=== PATIENT | male | born 1940 | race Caucasian/White ===

== ENCOUNTER → 2016-04-09 | Outpatient (CLI) | payer OTHER, MEDICARE ==
[~2016-04-09] MED LIST: CLOP1TAB15 PO; GLC5 PO; HYDR25TA4 PO; LISI40TA PO; METF-384 PO; MULT-190 PO; SIMV80TA2 PO; VERA360C2 PO
[2016-04-09 18:01] LABS: BLOOD UREA NITROGEN 25 mg/dl (7-18); BUN/CREATININE RATIO 17.6 (10-20); CALCIUM 9.5 mg/dl (8.5-10.1); CARBON DIOXIDE 31 mmol/L (21-32); CHLORIDE 103 mmol/L (98-107); GLUCOSE 105 mg/dl (70-99); POTASSIUM 3.6 mmol/L (3.5-5.1); SODIUM 142 mmol/L (136-145)
== END | disposition home or self-care (01) ==
LOC: C.LAB1850 16:28
PROVIDERS: ATTEND Internal Medicine
DX: E11.9 Type 2 diabetes mellitus without complications (principal)

== ENCOUNTER → 2016-04-13 | Outpatient (CLI) | payer OTHER, MEDICARE ==
--- NOTE | 2016-04-13 09:44 | DIAGNOSTIC IMAGING REPORT ---
DUPLEX RENAL ARTERY ULTRASOUND HISTORY: E11.9 Diabetes [id number] COMPARISON STUDY: None. FINDINGS: The proximal right renal artery was not well visualized. Otherwise, the bilateral renal arteries show no elevated velocities to suggest hemodynamically significant stenosis. The peak systolic velocity within the proximal left renal artery was 87 cm/s and within the distal right renal artery was 88 cm/s. Bilateral renal veins are patent. Resistive indices within the bilateral renal arcuate arteries were less than 0.8. IMPRESSION: No evidence for renal artery stenosis. Electronically signed by: Mao Washington M.D. 04/13/2016 9:42 AM Dictated Date/Time: 04/13/2016 9:39 AM
--- NOTE | 2016-04-13 09:46 | DIAGNOSTIC IMAGING REPORT ---
EXAMINATION: RENAL ULTRASOUND CLINICAL HISTORY: Diabetes. COMPARISON STUDY: None FINDINGS: The right kidney measures 11.7 cm. The left kidney measures 11.6 cm. There is no evidence of hydronephrosis. There is a 22 mm right renal cyst which is minimally complex as it contains a 7 mm echogenic focus. No bladder abnormalities are visualized. Bilateral ureteral jets were visualized. The prostate is enlarged measuring 41 mm. IMPRESSION : 1. 22 mm minimally complex right renal cyst 2. Mild prostate enlargement 3. No evidence of hydronephrosis 4. Symmetric renal size and cortical thickness Electronically signed by: Junior Romero M.D. 04/13/2016 9:44 AM Dictated Date/Time: 04/13/2016 9:43 AM
== END | disposition home or self-care (01) ==
LOC: C.ULTR 08:20
PROVIDERS: ATTEND Internal Medicine
DX: E11.9 Type 2 diabetes mellitus without complications (principal); N28.1 Cyst of kidney, acquired

== ENCOUNTER → 2016-07-01 | Day surgery (SDC) | payer OTHER, MEDICARE ==
[2016-06-19 09:20] VITALS: BMI 25.0
[~2016-07-01] VITALS: Ht 175.3 cm; Wt 76.8 kg
[~2016-07-01] MED LIST changes: +LIDOCAINE HCL 2% 2 ML VIAL (20MG/ML) ONE; +PROPOFOL IV EMULSION 10 MG/ML 20 ML VIAL IV ONE
[2016-07-01 08:58] VITALS: Ht 175.3 cm; Wt 76.8 kg
--- NOTE | 2016-07-01 09:21 | Endo History and Physical ---
History & Physical Date of Service: Jul 01, 2016. Chief Complaint: SCREENING Referring Physician: GILES ABEBE History of Present Illness 75 yo CM who presents for screening colonoscopy. Past Surgical History Hx Cardiac Surgery: No Hx Internal Defibrillator: No Hx Pacemaker: No Hx Abdominal Surgery: Yes (HERNIA REPAIR) Hx of Implantable Prosthesis: No Hx Post-Op Nausea and Vomiting: No Hx Cancer Surgery: No Hx Thoracic Surgery: No Hx Orthopedic: No Hx Urinary Tract Surgery: No Family History Polyp Social History Smoking Status: Former Smoker Hx Substance Use: No Hx Alcohol Use: No Allergies Coded Allergies: No Known Allergies (Verified , NONE, 06/19/16) Current Medications Reported Home Medications Medications Dose Route/Sig Max Daily Dose Days Date Category Ocuvite Preservision (Multivitamins/Minerals) 1 Tab Tab 1 Tab PO BID 09/11/15 Reported Glucophage (Metformin Hcl) 1,000 Mg Tab 1,000 Mg PO BID 09/11/15 Reported Hctz (Hydrochlorothiazide) 25 Mg Tab 25 Mg PO QAM 09/11/15 Reported Prinivil (Lisinopril) 40 Mg Tab 40 Mg PO QAM 09/11/15 Reported Verapamil Hcl Sr (Verapamil Hcl) 360 Mg Cap 360 Mg PO QAM 09/11/15 Reported Plavix (Clopidogrel Bisulfate) 75 Mg Tab 75 Mg PO QAM 12/16/08 Reported Zocor (Simvastatin) 80 Mg Tab 80 Mg PO QPM 12/12/08 Reported Glucotrol * (Glipizide) 5 Mg Tab 10 Mg PO BID 12/12/08 Reported Vital Signs Weight (Kilograms): 76.82 Height (Feet): 5 Height (Inches): 9 Date Time Temp Pulse Resp B/P Pulse Ox O2 Delivery O2 Flow Rate FiO2 07/01/16 09:12 36.8 85 20 150/80 96 Room Air Physical Exam General Appearance: WD/WN, no apparent distress Respiratory/Chest: Auscultation: breath sounds normal Cardiovascular: Heart Auscultation: RRR Abdomen: Bowel Sounds: normal Inspection & Palpation: soft, non-distended, no tenderness, guarding & rebound Assessment and Plan Assessment: 75 yo CM who presents for screening colonoscopy. Plan: Proceed with colonoscopy.
--- NOTE | 2016-07-01 10:00 | Discharge Instructions ---
Endoscopy Patient Instructions Date / Procedure(s) Performed Jul 01, 2016. Colonoscopy Allergy Information Coded Allergies: No Known Allergies (Verified , NONE, 06/19/16) Discharge Date / Findings Jul 01, 2016. Diverticulosis Internal hemorrhoids Ascending colon polyps x2 Medication Instructions Stopped Medication(s): PLAVIX AND METFORMIN OK to resume all medications today as prescribed Reported Home Medications Medications Dose Route/Sig Max Daily Dose Days Date Category Ocuvite Preservision (Multivitamins/Minerals) 1 Tab Tab 1 Tab PO BID 09/11/15 Reported Glucophage (Metformin Hcl) 1,000 Mg Tab 1,000 Mg PO BID 09/11/15 Reported Hctz (Hydrochlorothiazide) 25 Mg Tab 25 Mg PO QAM 09/11/15 Reported Prinivil (Lisinopril) 40 Mg Tab 40 Mg PO QAM 09/11/15 Reported Verapamil Hcl Sr (Verapamil Hcl) 360 Mg Cap 360 Mg PO QAM 09/11/15 Reported Plavix (Clopidogrel Bisulfate) 75 Mg Tab 75 Mg PO QAM 12/16/08 Reported Zocor (Simvastatin) 80 Mg Tab 80 Mg PO QPM 12/12/08 Reported Glucotrol * (Glipizide) 5 Mg Tab 10 Mg PO BID 12/12/08 Reported Provider Instructions Activity Restrictions - No exercising or heavy lifting for 24 hours. - Do not drink alcohol the day of the procedure. - Do not drive a car or operate machinery until the day after the procedure. - Do not make any important decisions or sign important papers in 24 hours after the procedure. Following Day: - Return to full activity which may include returning to work/school. Diet Start your diet with liquids and light foods (jello, soup, juice, toast). Then eat your usual diet if not nauseated. Treatment For Common After Affects For mild abdominal pain, bloating, or excessive gas: - Rest - Eat lightly - Lie on right side Follow-Up Information Follow-up with GILES ABEBE as scheduled Anesthesia Information What You Should Know You have had a procedure that required some medicine to reduce anxiety and discomfort. This treatment is called moderate sedation. After receiving the treatment, you may be sleepy, but you will be able to breathe on your own. The effects of the treatment may last for several hours. Follow these instructions along with Activity/Diet recommendations noted above: * Do NOT do anything where dizziness or clumsiness would be dangerous. * Rest quietly at home today, then you can be up and about tomorrow. * Have a responsible person stay with you the rest of today. * You may have had an I.V. today. If so, you may take the dressing off later today. Recommendations Call your doctor if: * Trouble breathing * Continuous vomiting for more than 24 hours * Temperature above 101 degrees * Severe abdominal pain or bloating * Pain not relieved by pain medicine ordered * There is increased drainage or redness from any incision * A large amount of rectal bleeding greater than 2-3 tablespoons. (If you had a polyp/s removed or have hemorrhoids, a small amount of blood - from the rectum is to be expected.) * You have any unanswered questions or concerns. IN THE EVENT OF A SERIOUS EMERGENCY, GO TO THE NEAREST EMERGENCY ROOM Your discharge instructions were prepared by provider Maged Lauren. Patient Instructions Signature Page Marcos Zhu Patient (or Guardian) Signature/Date: I have read and understand the instructions given to me by my caregivers. Caregiver/RN/Doctor Signature/Date: The above-named patient and/or guardian has received patient instructions on this date. + Original Patient Signature Page (only) stays with chart. Please make copy for patient.
--- NOTE | 2016-07-01 10:09 | GI REPORT ---
Procedure Date: 07/01/2016 9:26 AM Procedure: Colonoscopy Indications: Screening for colorectal malignant neoplasm Medicines: Monitored Anesthesia Care Complications: No immediate complications. Estimated Blood Loss: Estimated blood loss: none. Procedure: Pre-Anesthesia Assessment: - Prior to the procedure, a History and Physical was performed, and patient medications and allergies were reviewed. The patient's tolerance of previous anesthesia was also reviewed. The risks and benefits of the procedure and the sedation options and risks were discussed with the patient. All questions were answered, and informed consent was obtained. Prior Anticoagulants: The patient has taken Plavix (clopidogrel), last dose was 7 days prior to procedure. ASA Grade Assessment: II - A patient with mild systemic disease. After reviewing the risks and benefits, the patient was deemed in satisfactory condition to undergo the procedure. After I obtained informed consent, the scope was passed under direct vision. Throughout the procedure, the patient's blood pressure, pulse, and oxygen saturations were monitored continuously. The scope was introduced through the anus and advanced to the terminal ileum. The colonoscopy was performed without difficulty. The patient tolerated the procedure well. The quality of the bowel preparation was good. The terminal ileum, ileocecal valve, appendiceal orifice, and rectum were photographed. Findings: Two sessile polyps were found in the ascending colon. The polyps were 3 to 4 mm in size. These polyps were removed with a cold biopsy forceps. Resection and retrieval were complete. Multiple small-mouthed diverticula were found in the sigmoid colon. Non-bleeding internal hemorrhoids were found during retroflexion. The hemorrhoids were small. Impression: - Two 3 to 4 mm polyps in the ascending colon, removed with a cold biopsy forceps. Resected and retrieved. - Diverticulosis in the sigmoid colon. - Non-bleeding internal hemorrhoids. Recommendation: - Resume previous diet. - Continue present medications. - Return to primary care physician as previously scheduled. - No repeat colonoscopy due to age. Maged Lauren, DO 07/01/2016 10:08:58 AM This report has been signed electronically. Note Initiated On: 07/01/2016 9:26 AM I attest to the content of the Intraoperative Record and orders documented therein, exceptions below
[2016-07-01 10:29] VITALS: BP 123/66; PULSE 72; O2SAT 95
--- NOTE | 2016-07-01 14:27 | Anesthesiology Progress Note ---
Anesthesia Post Op Note Date & Time Jul 01, 2016 at 14:26 Vital Signs Pain Intensity: 0 Vital Signs Past 12 Hours Date Time Temp Pulse Resp B/P Pulse Ox O2 Delivery O2 Flow Rate FiO2 07/01/16 10:29 72 20 123/66 95 Room Air 07/01/16 10:14 65 20 111/59 95 Room Air 07/01/16 09:59 65 20 108/53 98 Room Air 07/01/16 09:12 36.8 85 20 150/80 96 Room Air Notes Mental Status: alert / awake / arousable, participated in evaluation Pt Amnestic to Procedure: Yes Nausea / Vomiting: adequately controlled Pain: adequately controlled Airway Patency, RR, SpO2: stable & adequate BP & HR: stable & adequate Hydration State: stable & adequate Anesthetic Complications: no major complications apparent
== END | disposition home or self-care (01) ==
LOC: C.GI 08:39
PROVIDERS: ATTEND Internal Medicine
DX: Z12.11 Encounter for screening for malignant neoplasm of colon (principal); D12.2 Benign neoplasm of ascending colon; K57.30 Diverticulosis of large intestine without perforation or abscess without bleeding; K64.8 Other hemorrhoids; Z87.891 Personal history of nicotine dependence

== ENCOUNTER → 2016-08-20 | Outpatient (CLI) | payer OTHER, MEDICARE ==
[~2016-08-20] MED LIST changes: -LIDOCAINE HCL 2% 2 ML VIAL (20MG/ML) ONE; -PROPOFOL IV EMULSION 10 MG/ML 20 ML VIAL IV ONE
[2016-08-20 10:58] LABS: BASO % 0.5 %; BASO ABS # 0.03 K/uL (0-0.2); COMPLETE YES; HEMATOCRIT 41.8 % (42-52); IG% 0.3 %; LYMPH % 24.5 %; MEAN CELL VOLUME 95.4 fL (80-100); MEAN CORPUSCULAR HEMOGLOBIN 30.6 pg (25-34); MEAN CORPUSCULAR HGB CONC 32.1 g/dl (32-36); MONO % 9.5 %; NEUT % 57.2 %; PLATELET COUNT 191 K/uL (130-400); RED BLOOD COUNT 4.38 M/uL (4.7-6.1); WHITE BLOOD COUNT 6.12 K/uL (4.8-10.8)
[2016-08-20 11:28] LABS: ESTIMATED AVERAGE GLUCOSE 197 mg/dl; HA1C FLAG Normal (Normal)
[2016-08-20 15:39] LABS: ALT/SGPT 42 U/L (12-78); AST/SGOT 26 U/L (15-37); BLOOD UREA NITROGEN 20 mg/dl (7-18); BUN/CREATININE RATIO 16.5 (10-20); CALCIUM 9.6 mg/dl (8.5-10.1); CARBON DIOXIDE 33 mmol/L (21-32); CHLORIDE 103 mmol/L (98-107); GLUCOSE 149 mg/dl (70-99); POTASSIUM 4.1 mmol/L (3.5-5.1); SODIUM 141 mmol/L (136-145)
[2016-08-20 15:50] LABS: CHOLESTEROL 128 mg/dl (0-200); CHOLESTEROL/HDL RATIO 2.8; HDL CHOLESTEROL 45 mg/dl; LDL CHOLESTEROL CALCULATED 51 mg/dl; TRIGLYCERIDES 162 mg/dl (0-150); VERY LOW DENSITY LIPOPROT CALC 32 mg/dl
== END | disposition home or self-care (01) ==
LOC: C.LABBC 09:11
PROVIDERS: ATTEND Physician Assistant
DX: E11.9 Type 2 diabetes mellitus without complications (principal); I10 Essential (primary) hypertension; E78.00 Pure hypercholesterolemia, unspecified

== ENCOUNTER → 2016-10-01 | Outpatient (CLI) | payer OTHER, MEDICARE | END | disposition home or self-care (01) | LOC: C.LABBC 10:06 | PROVIDERS: ATTEND Internal Medicine | DX: E11.9 Type 2 diabetes mellitus without complications (principal) ==

== ENCOUNTER → 2016-12-07 | Outpatient (CLI) | payer OTHER, MEDICARE ==
[2016-12-08 05:48] LABS: ESTIMATED AVERAGE GLUCOSE 171 mg/dl; HA1C FLAG Normal (Normal)
== END | disposition home or self-care (01) ==
LOC: C.LABBC 09:17
PROVIDERS: ATTEND Internal Medicine
DX: E11.9 Type 2 diabetes mellitus without complications (principal)

== ENCOUNTER → 2017-03-04 | Outpatient (CLI) | payer OTHER, MEDICARE ==
[2017-03-04 13:10] LABS: BASO % 0.6 %; BASO ABS # 0.04 K/uL (0-0.2); COMPLETE YES; EOS % 3.2 %; IG% 0.4 %; LYMPH % 31.8 %; LYMPH ABS # 2.25 K/uL (1.2-3.4); MEAN CELL VOLUME 96.9 fL (80-100); MEAN CORPUSCULAR HEMOGLOBIN 31.7 pg (25-34); MEAN CORPUSCULAR HGB CONC 32.7 g/dl (32-36); MEAN PLATELET VOLUME 12.9 fL (7.4-10.4); MONO % 9.7 %; NEUT % 54.3 %; PLATELET COUNT 210 K/uL (130-400); RED BLOOD COUNT 4.54 M/uL (4.7-6.1); WHITE BLOOD COUNT 7.08 K/uL (4.8-10.8)
[2017-03-04 13:13] LABS: URINE APPEARANCE CLEAR (CLEAR); URINE BILIRUBIN NEG (NEG); URINE COLOR YELLOW; URINE NITRITE NEG (NEG); URINE PH 5.5 (4.5-7.5); URINE SPECIFIC GRAVITY 1.021 (1.000-1.030); UROBILINOGEN NEG (NEG)
[2017-03-04 13:19] LABS: ESTIMATED AVERAGE GLUCOSE 174 mg/dl; HA1C FLAG Normal (Normal)
[2017-03-04 13:22] LABS: MANUAL MICROSCOPIC REQUIRED? NO; REVIEW REQ? NO
[2017-03-04 13:43] LABS: ALT/SGPT 36 U/L (12-78); AST/SGOT 23 U/L (15-37); BLOOD UREA NITROGEN 22 mg/dl (7-18); BUN/CREATININE RATIO 16.2 (10-20); CALCIUM 9.4 mg/dl (8.5-10.1); CARBON DIOXIDE 29 mmol/L (21-32); CHLORIDE 100 mmol/L (98-107); CHOLESTEROL 139 mg/dl (0-200); CREATININE 1.33 mg/dl (0.60-1.40); GLUCOSE 152 mg/dl (70-99); POTASSIUM 3.6 mmol/L (3.5-5.1); SODIUM 136 mmol/L (136-145); TRIGLYCERIDES 160 mg/dl (0-150); VERY LOW DENSITY LIPOPROT CALC 32 mg/dl
[2017-03-04 13:45] LABS: RATIO 138.6 mcg/mg (0-30.0)
[2017-03-04 13:47] LABS: CHOLESTEROL/HDL RATIO 2.5; HDL CHOLESTEROL 56 mg/dl; LDL CHOLESTEROL CALCULATED 51 mg/dl
== END | disposition home or self-care (01) ==
LOC: C.LABPVFM 09:36
PROVIDERS: ATTEND Internal Medicine
DX: E11.9 Type 2 diabetes mellitus without complications (principal)

== ENCOUNTER → 2017-06-29 | Outpatient (CLI) | payer OTHER, MEDICARE | END | disposition home or self-care (01) | LOC: C.LABPVFM 08:59 | PROVIDERS: ATTEND Internal Medicine | DX: I10 Essential (primary) hypertension (principal) ==

== ENCOUNTER 2020-09-13 19:44 | Inpatient (IN) ==
[2020-09-13] MEDS ORDERED: CEFEPIME 2,000 MG/20 ML VIAL IV STA (19:58)
[2020-09-13] MEDS ORDERED: ACETAMINOPHEN 500 MG TAB PO STA (19:58)
[2020-09-13] MEDS ORDERED: SODIUM CHLORIDE 0.9% 1000ML 1,000 ML IV SCH (20:00)
--- NOTE | 2020-09-13 20:01 | Emergency Department Note ---
Impression & Plan Weakness, Acute confusion, Fever, Pneumonia ED Provider Note NAME: CRISTOPHER AVITIA AGE: 79 SEX: M : 1940 ARRIVES VIA: Ambulance INFORMANT: [Patient][ems, nursing] ED PROVIDER(S): [Luis A Titus MD] CHIEF COMPLAINT: Illness HISTORY OF PRESENT ILLNESS: The patient is a 79-year-old male who presents with about 5 days of symptoms. The patient has had some chills. He has felt weaker. Today, he seemed somewhat confused and disoriented and had some difficulty with balance. He presents by EMS. Blood sugar was 220 as per EMS. The patient has been vaccinated for COVID-19. He has had no sick exposures. He denies any sore throat, cough, chest pain or abdominal pain. No diarrhea or urinary complaints. As per nursing staff, the patient presents febrile. REVIEW OF SYSTEMS: See HPI for pertinent positives and negatives. A total of ten systems were reviewed and were otherwise negative. PMHx/PSHx: See Below SOCIAL HISTORY: See Below. PHYSICAL EXAM: GENERAL: Patient is in no acute distress. HEENT: No acute trauma, normocephalic atraumatic, mucous membranes moist, no nasal congestion, no scleral icterus. NECK: No stridor, no adenopathy, no meningismus, trachea is midline. LUNGS: Clear to auscultation bilaterally, no wheeze, no rhonchi, breath sounds equal. HEART: 3/6 systolic murmur, mildly tachycardic, regular rhythm. ABDOMEN: Soft, nontender, bowel sounds positive, no hernias, no peritonitis. EXTREMITIES: No cyanosis or edema, full range of motion of all the joints without pain or difficulty, no signs for acute trauma. NEUROLOGIC: Awake and alert, no speech slur, no acute motor or sensory deficits, no focal weakness. SKIN: No rash, no jaundice, no diaphoresis. DIFFERENTIAL DIAGNOSIS: Sepsis, UTI, pneumonia, metabolic abnormality, electrolyte abnormalities, cardiac sources, COVID-19, cellulitis, UTI, bacteremia, intracerebral event, toxicologic etiology, neurologic event, as well as other pathologies. EMERGENCY DEPARTMENT COURSE/PROCEDURES: ECG: Indication was weakness. The ECG shows a sinus tachycardia with PACs. There is a right bundle branch block. The rate is 103. There is no ST elevation, no PVCs. The QTc is 453. Continuous Cardiac Monitoring: An order was placed for continuous cardiac monitoring. The monitor shows a rate of 119 with sinus tachycardia. Critical Care Note: I have personally spent 52 minutes of critical care time in the direct management of this patient. This includes bedside care, interpretation of diagnostic studies, and testing, discussion with consultants, patient, and family members, and other required patient management activities. This 52 minutes is in excess of all separately billable procedures. MEDICAL DECISION MAKING: There is no leukocytosis. The patient does have an anemia but this appears baseline looking back at previous testing. There is a normal platelet count. No coagulopathy. Sodium was somewhat low at 129. Creatinine was elevated at 1.48. Glucose was somewhat elevated. Lactic acid level was elevated consistent with infection/sepsis. No worrisome liver enzyme elevation. Urinalysis showed some contamination, no obvious infection. Lyme disease testing was potentially positive with an equivocal IgM. Covid testing returned negative. Chest film shows what appears to be pneumonia. On exam, the patient was resting comfortably. He was in no significant distress. He was tachycardic though and febrile. Patient was given IV saline, 1 L. He received IV cefepime and oral Tylenol. The patient is in need of a hospital stay. He presents weak, confused, febrile and tachycardic. He appears to have pneumonia as the cause for his issues. I did speak with the patient and case management. I spoke with his . The on-call hospitalist was consulted. Past Med/Surg History Medical History Actinic keratoses Diabetes mellitus Diverticulosis of colon Hypercholesterolemia Hypertension Internal hemorrhoids Limb pain Macular degeneration Seborrheic keratosis Social History Smoking Status: Former smoker Tobacco Type: Cigarettes Smoking End Date: 1964; Second Hand Exposure: No; Do You Dip or Chew Tobacco: No; Hx Alcohol Use: No Hx Substance Use: No Preferred Language: Citizen Of [place] Communication Ability: Effective Check Services Clerk Required: No Beliefs That Will Affect Care: None Current Living Situation: Spouse Feels Safe at Home: Yes Safety Concerns: Feels Safe At This Time Assistive Devices: None Allergies Allergies Allergy/AdvReac Type Severity Reaction Status Date / Time No Known Allergies Allergy NONE Verified 09/13/20 20:12 Home Meds Home Medications Medication Instructions Recorded Confirmed vitamins A,C,[id number] 14,320 1 cap PO BID 11/10/18 09/13/20 unit-226 mg-200 unit capsule simvastatin 80 mg PO HS 09/13/20 09/13/20 Previous Rx's Medication Instructions Recorded pioglitazone 30 mg tablet 30 mg PO DAILY #90 tab 01/03/20 lisinopril 40 mg tablet 40 mg PO DAILY #90 tab 05/13/20 metformin 1,000 mg tablet 1,000 mg PO BID #180 tab 05/13/20 verapamil 360 mg 24 hr 360 mg PO DAILY #90 cap 05/13/20 capsule,extended release glipizide 5 mg tablet, extended 10 mg PO BID #360 tab 05/14/20 release 24 hr clopidogrel 75 mg tablet 75 mg PO DAILY #90 tab 05/15/20 hydrochlorothiazide 25 mg tablet 25 mg PO DAILY #90 tab 05/15/20 Results & Data (ED) Vital Signs Vital Signs - 24 hr 09/13/20 19:49 09/13/20 19:53 09/13/20 19:57 Temperature 38.8 C H Temperature Source Oral Pulse Rate 120 H 105 H 103 H Pulse Rate from SpO2 Sensor 99 H 103 H Pulse Rhythm Regular Pulse Strength Normal Respiratory Rate 28 H 18 21 Respiratory Effort / Characteristics Non-Labored Respiratory Depth Normal Respiratory Pattern Regular Blood Pressure 143/76 H 143/76 H Blood Pressure Mean 98 98 Blood Pressure Position Lying Pulse Oximetry 91 93 91 Oxygen Delivery Method Room Air Sepsis Recent Fever Within 48 Hours Yes Sepsis New/Unexplained Change in Mental Status Yes Sepsis Action Taken by Nursing Physician Notified 09/13/20 20:00 09/13/20 20:01 09/13/20 20:15 Temperature Temperature Source Pulse Rate 103 H 105 H 103 H Pulse Rate from SpO2 Sensor 103 H 104 H 107 H Pulse Rhythm Pulse Strength Respiratory Rate 20 19 26 H Respiratory Effort / Characteristics Respiratory Depth Respiratory Pattern Blood Pressure 159/67 H 144/63 H Blood Pressure Mean 97 90 Blood Pressure Position Pulse Oximetry 90 91 89 L Oxygen Delivery Method Sepsis Recent Fever Within 48 Hours Sepsis New/Unexplained Change in Mental Status Sepsis Action Taken by Nursing 09/13/20 20:20 09/13/20 20:30 09/13/20 20:31 Temperature Temperature Source Pulse Rate 103 H 105 H Pulse Rate from SpO2 Sensor 104 H Pulse Rhythm Regular Pulse Strength Respiratory Rate 28 H 20 22 Respiratory Effort / Characteristics Non-Labored Non-Labored Spontaneous Accessory Muscle Use Respiratory Depth Respiratory Pattern Blood Pressure 137/66 Blood Pressure Mean 89 Blood Pressure Position Pulse Oximetry 92 92 93 Oxygen Delivery Method Room Air Room Air Room Air Sepsis Recent Fever Within 48 Hours Sepsis New/Unexplained Change in Mental Status Sepsis Action Taken by Nursing 09/13/20 20:45 09/13/20 21:00 09/13/20 21:01 Temperature Temperature Source Pulse Rate 97 H 95 H 95 H Pulse Rate from SpO2 Sensor 96 H 95 H 95 H Pulse Rhythm Pulse Strength Respiratory Rate 19 19 21 Respiratory Effort / Characteristics Non-Labored Spontaneous Accessory Muscle Use Respiratory Depth Respiratory Pattern Blood Pressure 123/61 130/61 Blood Pressure Mean 81 84 Blood Pressure Position Pulse Oximetry 92 89 L 90 Oxygen Delivery Method Sepsis Recent Fever Within 48 Hours Sepsis New/Unexplained Change in Mental Status Sepsis Action Taken by Nursing 09/13/20 21:15 09/13/20 21:16 09/13/20 21:22 Temperature 37.2 C Temperature Source Oral Pulse Rate 90 94 H Pulse Rate from SpO2 Sensor 93 H 92 H Pulse Rhythm Pulse Strength Respiratory Rate 16 20 Respiratory Effort / Characteristics Respiratory Depth Respiratory Pattern Blood Pressure 135/61 Blood Pressure Mean 85 Blood Pressure Position Pulse Oximetry 90 90 Oxygen Delivery Method Sepsis Recent Fever Within 48 Hours Sepsis New/Unexplained Change in Mental Status Sepsis Action Taken by Nursing 09/13/20 21:30 09/13/20 21:31 09/13/20 21:45 Temperature Temperature Source Pulse Rate 94 H 90 90 Pulse Rate from SpO2 Sensor 95 H 92 H 88 Pulse Rhythm Pulse Strength Respiratory Rate 21 16 19 Respiratory Effort / Characteristics Non-Labored Spontaneous Accessory Muscle Use Respiratory Depth Respiratory Pattern Blood Pressure 136/55 L 123/55 L Blood Pressure Mean 82 77 Blood Pressure Position Pulse Oximetry 89 L 92 92 Oxygen Delivery Method Sepsis Recent Fever Within 48 Hours Sepsis New/Unexplained Change in Mental Status Sepsis Action Taken by Nursing 09/13/20 21:46 09/13/20 22:00 09/13/20 22:01 Temperature Temperature Source Pulse Rate 89 87 89 Pulse Rate from SpO2 Sensor 89 84 82 Pulse Rhythm Pulse Strength Respiratory Rate 21 14 16 Respiratory Effort / Characteristics Non-Labored Spontaneous Accessory Muscle Use Respiratory Depth Respiratory Pattern Blood Pressure 128/64 Blood Pressure Mean 85 Blood Pressure Position Pulse Oximetry 91 91 92 Oxygen Delivery Method Sepsis Recent Fever Within 48 Hours Sepsis New/Unexplained Change in Mental Status Sepsis Action Taken by Nursing 09/13/20 22:15 09/13/20 22:16 09/13/20 22:30 Temperature Temperature Source Pulse Rate 84 85 85 Pulse Rate from SpO2 Sensor 84 85 87 Pulse Rhythm Pulse Strength Respiratory Rate 16 17 16 Respiratory Effort / Characteristics Non-Labored Spontaneous Accessory Muscle Use Respiratory Depth Respiratory Pattern Blood Pressure 117/63 129/59 L Blood Pressure Mean 81 82 Blood Pressure Position Pulse Oximetry 90 93 91 Oxygen Delivery Method Sepsis Recent Fever Within 48 Hours Sepsis New/Unexplained Change in Mental Status Sepsis Action Taken by Nursing 09/13/20 22:31 09/13/20 22:45 Temperature Temperature Source Pulse Rate 83 81 Pulse Rate from SpO2 Sensor 78 81 Pulse Rhythm Pulse Strength Respiratory Rate 16 23 Respiratory Effort / Characteristics Respiratory Depth Respiratory Pattern Blood Pressure 138/52 L Blood Pressure Mean 80 Blood Pressure Position Pulse Oximetry 92 92 Oxygen Delivery Method Sepsis Recent Fever Within 48 Hours Sepsis New/Unexplained Change in Mental Status Sepsis Action Taken by Detention Medications Current Medication List: was personally reviewed by me Laboratory Data Attestation: I reviewed the patient's lab results. Result diagrams: 09/13/20 20:06 09/13/20 20:06 Lab Results 09/13/20 09/13/20 09/13/20 Range/Units 20:06 20:06 20:06 WBC 9.73 (4.8-10.8) K/uL RBC 3.63 L (4.7-6.1) M/uL Hgb 11.6 L (14.0-18.0) g/dL Hct 34.4 L (42-52) % MCV 94.8 (80-100) fL MCH 32.0 (25-34) pg MCHC 33.7 (32-36) g/dL RDW Std Deviation 46.5 H (36.4-46.3) fL RDW Coeff of Tristin 13.3 (11.5-14.5) % Plt Count 191 (130-400) K/uL MPV 11.5 H (7.4-10.4) fL Immature Gran % (Auto) 0.4 % Neut % (Auto) 88.7 % Lymph % (Auto) 5.2 % Bay % (Auto) 5.7 % Eos % (Auto) 0.0 % Baso % (Auto) 0.0 % Neut # (Auto) 8.63 H (1.4-6.5) K/uL Lymph # (Auto) 0.51 L (1.2-3.4) K/uL Bay # (Auto) 0.55 (0.11-0.59) K/uL Eos # (Auto) 0.00 (0-0.5) K/uL Baso # (Auto) 0.00 (0-0.2) K/uL Immature Gran # (Auto) 0.04 H (0.00-0.02) K/uL PT 10.2 (9.0-12.0) Seconds INR 1.0 (0.9-1.1) APTT 25.6 (21.0-31.0) Seconds PTT Ratio 1.0 Sodium 129 L (136-145) mmol/L Potassium 3.5 (3.5-5.1) mmol/L Chloride 93 L (98-107) mmol/L Carbon Dioxide 28 (21-32) mmol/L Anion Gap 8.0 (3-11) BUN 39 H (7-18) mg/dl Creatinine 1.48 H (0.6-1.4) mg/dl Est Cr Clr Drug Dosing 39.2 ml/min Est GFR ( Amer) 51.4 ml/min Est GFR (Non-Af Amer) 44.4 ml/min BUN/Creatinine Ratio 26.4 H (10-20) Glucose 255 H (70-99) mg/dl Lactate (0.4-2.0) mmol/L Calcium 9.8 (8.5-10.1) mg/dl Magnesium 1.8 (1.8-2.4) mg/dl Total Bilirubin 0.6 (0.2-1) mg/dl AST 41 H (15-37) U/L ALT 45 (12-78) U/L Alkaline Phosphatase 65 (45-117) U/L Total Protein 7.5 (6.4-8.2) gm/dl Albumin 3.1 L (3.4-5.0) gm/dl Globulin 4.4 H (2.5-4.0) gm/dl Albumin/Globulin Ratio 0.7 L (0.9-2) Procalcitonin (0-0.5) ng/ml Urine Color Urine Appearance (Clear) Urine pH (4.5-7.5) Ur Specific Harvey (1.000-1.030) Urine Protein (Negative) Urine Glucose (UA) (Negative) Urine Ketones (Negative) Urine Blood (Negative) Urine Nitrite (Negative) Urine Bilirubin (Negative) Urine Urobilinogen (Negative) Ur Leukocyte Esterase (Negative) Urine WBC (Auto) (0-5) /hpf Urine RBC (Auto) (0-4) /hpf U Hyaline Cast (Auto) (0-5) /lpf U Epithel Cells (Auto) (0-5) /lpf Urine Bacteria (Auto) (Negative) Lyme Disease IgG Ab (Negative) Lyme Disease IgM Ab (Negative) COVID-19 Eval Order SARS-CoV-2 (PCR) (Negative) 09/13/20 09/13/20 09/13/20 Range/Units 20:06 20:06 20:12 WBC (4.8-10.8) K/uL RBC (4.7-6.1) M/uL Hgb (14.0-18.0) g/dL Hct (42-52) % MCV (80-100) fL MCH (25-34) pg MCHC (32-36) g/dL RDW Std Deviation (36.4-46.3) fL RDW Coeff of Tristin (11.5-14.5) % Plt Count (130-400) K/uL MPV (7.4-10.4) fL Immature Gran % (Auto) % Neut % (Auto) % Lymph % (Auto) % Bay % (Auto) % Eos % (Auto) % Baso % (Auto) % Neut # (Auto) (1.4-6.5) K/uL Lymph # (Auto) (1.2-3.4) K/uL Bay # (Auto) (0.11-0.59) K/uL Eos # (Auto) (0-0.5) K/uL Baso # (Auto) (0-0.2) K/uL Immature Gran # (Auto) (0.00-0.02) K/uL PT (9.0-12.0) Seconds INR (0.9-1.1) APTT (21.0-31.0) Seconds PTT Ratio Sodium (136-145) mmol/L Potassium (3.5-5.1) mmol/L Chloride (98-107) mmol/L Carbon Dioxide (21-32) mmol/L Anion Gap (3-11) BUN (7-18) mg/dl Creatinine (0.6-1.4) mg/dl Est Cr Clr Drug Dosing ml/min Est GFR ( Amer) ml/min Est GFR (Non-Af Amer) ml/min BUN/Creatinine Ratio (10-20) Glucose (70-99) mg/dl Lactate 2.4 H* (0.4-2.0) mmol/L Calcium (8.5-10.1) mg/dl Magnesium (1.8-2.4) mg/dl Total Bilirubin (0.2-1) mg/dl AST (15-37) U/L ALT (12-78) U/L Alkaline Phosphatase (45-117) U/L Total Protein (6.4-8.2) gm/dl Albumin (3.4-5.0) gm/dl Globulin (2.5-4.0) gm/dl Albumin/Globulin Ratio (0.9-2) Procalcitonin 0.39 (0-0.5) ng/ml Urine Color Urine Appearance (Clear) Urine pH (4.5-7.5) Ur Specific Harvey (1.000-1.030) Urine Protein (Negative) Urine Glucose (UA) (Negative) Urine Ketones (Negative) Urine Blood (Negative) Urine Nitrite (Negative) Urine Bilirubin (Negative) Urine Urobilinogen (Negative) Ur Leukocyte Esterase (Negative) Urine WBC (Auto) (0-5) /hpf Urine RBC (Auto) (0-4) /hpf U Hyaline Cast (Auto) (0-5) /lpf U Epithel Cells (Auto) (0-5) /lpf Urine Bacteria (Auto) (Negative) Lyme Disease IgG Ab Negative (Negative) Lyme Disease IgM Ab Equivocal A (Negative) COVID-19 Eval Order Covid19 at [facility] SARS-CoV-2 (PCR) (Negative) 09/13/20 09/13/20 09/13/20 Range/Units 20:12 20:31 21:56 WBC (4.8-10.8) K/uL RBC (4.7-6.1) M/uL Hgb (14.0-18.0) g/dL Hct (42-52) % MCV (80-100) fL MCH (25-34) pg MCHC (32-36) g/dL RDW Std Deviation (36.4-46.3) fL RDW Coeff of Tristin (11.5-14.5) % Plt Count (130-400) K/uL MPV (7.4-10.4) fL Immature Gran % (Auto) % Neut % (Auto) % Lymph % (Auto) % Bay % (Auto) % Eos % (Auto) % Baso % (Auto) % Neut # (Auto) (1.4-6.5) K/uL Lymph # (Auto) (1.2-3.4) K/uL Bay # (Auto) (0.11-0.59) K/uL Eos # (Auto) (0-0.5) K/uL Baso # (Auto) (0-0.2) K/uL Immature Gran # (Auto) (0.00-0.02) K/uL PT (9.0-12.0) Seconds INR (0.9-1.1) APTT (21.0-31.0) Seconds PTT Ratio Sodium (136-145) mmol/L Potassium (3.5-5.1) mmol/L Chloride (98-107) mmol/L Carbon Dioxide (21-32) mmol/L Anion Gap (3-11) BUN (7-18) mg/dl Creatinine (0.6-1.4) mg/dl Est Cr Clr Drug Dosing ml/min Est GFR ( Amer) ml/min Est GFR (Non-Af Amer) ml/min BUN/Creatinine Ratio (10-20) Glucose (70-99) mg/dl Lactate 2.4 H* (0.4-2.0) mmol/L Calcium (8.5-10.1) mg/dl Magnesium (1.8-2.4) mg/dl Total Bilirubin (0.2-1) mg/dl AST (15-37) U/L ALT (12-78) U/L Alkaline Phosphatase (45-117) U/L Total Protein (6.4-8.2) gm/dl Albumin (3.4-5.0) gm/dl Globulin (2.5-4.0) gm/dl Albumin/Globulin Ratio (0.9-2) Procalcitonin (0-0.5) ng/ml Urine Color Yellow Urine Appearance Clear (Clear) Urine pH 5.0 (4.5-7.5) Ur Specific Harvey 1.022 (1.000-1.030) Urine Protein 2+ H (Negative) Urine Glucose (UA) 2+ H (Negative) Urine Ketones 1+ H (Negative) Urine Blood 2+ H (Negative) Urine Nitrite Negative (Negative) Urine Bilirubin Negative (Negative) Urine Urobilinogen Negative (Negative) Ur Leukocyte Esterase Negative (Negative) Urine WBC (Auto) 5-10 H (0-5) /hpf Urine RBC (Auto) 10-30 H (0-4) /hpf U Hyaline Cast (Auto) 1-5 (0-5) /lpf U Epithel Cells (Auto) 20-30 H (0-5) /lpf Urine Bacteria (Auto) Negative (Negative) Lyme Disease IgG Ab (Negative) Lyme Disease IgM Ab (Negative) COVID-19 Eval Order SARS-CoV-2 (PCR) NEGATIVE (Negative) Administered Medications Discontinued Medications Acetaminophen (Acetaminophen 500 Mg Tab) 1,000 mg PO NOW STA Stop: 09/13/20 19:59 Last Admin: 09/13/20 20:09 Dose: 1,000 mg Documented by: [id number] Sodium Chloride (Nss 1000ml) 1,000 mls @ 999 mls/hr IV .[id number] Stop: 09/13/20 21:00 Last Infusion: 09/13/20 21:16 Dose: 0 mls/hr Documented by: [id number] Admin: 09/13/20 20:10 Dose: 999 mls/hr Documented by: [id number] Cefepime HCl (Maxipime) 2,000 mg in 20 mls @ 5 mls/min IV NOW STA; Protocol Stop: 09/13/20 20:01 Last Admin: 09/13/20 20:10 Dose: 5 mls/min Documented by: [id number] Imaging Data Radiologist's Impression: Chest X-Ray 09/13/20 19:58 SINGLE VIEW CHEST CLINICAL HISTORY: Sepsis. FINDINGS: An AP, portable, upright chest radiograph is compared to study dated 12/12/2008. The heart is top normal for projection noting atherosclerotic calcification of the thoracic aorta. The pulmonary vasculature is noncongested. There is elevation of right hemidiaphragm. Bibasilar airspace opacities are noted. Apical scarring is observed. Question a nodular density in the right upper lobe. No large pleural effusion on pneumothorax is seen. The skeletal structures are osteopenic. The bony thorax is grossly intact. IMPRESSION: 1. There are bibasilar airspace opacities. This could represent atelectasis versus a mild infectious/inflammatory pneumonitis and clinical correlation will be required. 2. Question a nodular density in the right upper lobe. Correlation with a chest CT is recommended for further assessment and to exclude underlying pulmonary lesion. ACT 112: Negative or not required by law. Electronically signed by: Luis A Allred M.D. 09/13/2020 8:16 PM Discharge Plan Visit Data Chief Complaint: Illness ED Provider: Luis A Titus Discharge Problem: Weakness, Acute confusion, Fever, Pneumonia Patient Disposition: Admitted As Inpatient Condition: Fair Discharge Instructions Interventions: ED Discharge Assessment Last Done: 09/13/20 23:29 Discharge Problem: Fever Qualifiers: Fever type: unspecified Qualified Code(s): R50.9 - Fever, unspecified Pneumonia Qualifiers: Pneumonia type: due to unspecified organism Laterality: right Lung location: lower lobe of lung Qualified Code(s): J18.9 - Pneumonia, unspecified organism
[2020-09-13 20:16] LABS: Hematocrit (blood only) 34.4 % (42-52); Hemoglobin 11.6 g/dL (14.0-18.0); Immature Granulocytes # (auto) 0.04 K/uL (0.00-0.02); Immature Granulocytes % (auto) 0.4 %; Lymphocytes # (auto) 0.51 K/uL (1.2-3.4); Lymphocytes % (auto) 5.2 %; Mean Corpuscular Hgb Conc 33.7 g/dL (32-36); Mean Corpuscular Volume 94.8 fL (80-100); Mean Platelet Volume 11.5 fL (7.4-10.4); Monocytes # (auto) 0.55 K/uL (0.11-0.59); Monocytes % (auto) 5.7 %; Neutrophils # (auto) 8.63 K/uL (1.4-6.5); Neutrophils % (auto) 88.7 %; Platelet Count 191 K/uL (130-400); RDW Coefficient of Variation 13.3 % (11.5-14.5); RDW Standard Deviation 46.5 fL (36.4-46.3); Red Blood Count 3.63 M/uL (4.7-6.1); White Blood Count 9.73 K/uL (4.8-10.8)
--- NOTE | 2020-09-13 20:17 | XRay Report ---
SINGLE VIEW CHEST CLINICAL HISTORY: Sepsis. FINDINGS: An AP, portable, upright chest radiograph is compared to study dated 12/12/2008. The heart i s top normal for projection noting atherosclerotic calcification of the thoracic aorta. The pulmonary vasculature is noncongested. There is elevation of right hemidiaphragm. Bibasilar airspace opacities are noted. Apical scarring is observed. Question a nodular density in the right upper lobe. No large pleural effusion on pneumothorax is seen. The skeletal structures are osteopenic. The bony thorax is grossly intact. IMPRESSION: 1. There are bibasilar airspace opacities. This could represent atelectasis versus a mild infectious/ inflammatory pneumonitis and clinical correlation will be required. 2. Question a nodular density in the right upper lobe. Correlation with a chest CT is recommended for further assessment and to exclude underlying pulmonary lesion. ACT 112: Negative or not required by law. Electronically signed by: Luis A Allred M.D. 09/13/2020 8:16 PM
[2020-09-13 20:26] LABS: Partial Thromboplastin Time 25.6 Seconds (21.0-31.0); Prothrombin Time 10.2 Seconds (9.0-12.0)
[2020-09-13 20:32] LABS: Albumin Level 3.1 gm/dl (3.4-5.0); BUN Creatinine Ratio 26.4 (10-20); Calcium 9.8 mg/dl (8.5-10.1); Creatinine Clr Calc Pharmacy 39.2 ml/min; Est GFR (African American) 51.4 ml/min; Est GFR (Non-African American) 44.4 ml/min; Magnesium 1.8 mg/dl (1.8-2.4); Potassium 3.5 mmol/L (3.5-5.1)
[2020-09-13 20:35] LABS: Albumin Globulin Ratio 0.7 (0.9-2); Bilirubin,Total 0.6 mg/dl (0.2-1); Globulin 4.4 gm/dl (2.5-4.0); Total Protein 7.5 gm/dl (6.4-8.2)
[2020-09-13 20:58] LABS: Appearance Urine Clear (Clear); Bacteria Urine Automated Negative (Negative); Bilirubin Urine Negative (Negative); Blood Urine 2+ (Negative); Color Urine Yellow; Epithelial Cell Urine Auto 20-30 /lpf (0-5); Glucose Urine UA 2+ (Negative); Ketones Urine 1+ (Negative); Leukocyte Esterase Urine Negative (Negative); Nitrite Urine Negative (Negative); Protein Urine 2+ (Negative); Specific Gravity Urine 1.022 (1.000-1.030); Urobilinogen Urine Negative (Negative)
[2020-09-13 21:16] LABS: Procalcitonin 0.39 ng/ml (0-0.5)
[2020-09-13 21:22] LABS: Lyme Ab IgG w/WB Rflx Negative (Negative)
[2020-09-13 21:45] LABS: Lyme Ab IgM w/WB Rflx Equivocal (Negative)
--- NOTE | 2020-09-13 22:53 | History & Physical Report ---
Date of Service September 13, 2020 Assessment & Plan (1) Pneumonia: Consolidated right lower lobe pneumonia- [facility]quired [facility] on ceftriaxone 2 g IV daily and doxycycline 100 mg IV every 12 hours. To cover both pneumonia and suspected Lyme disease Duonebs every 4 hours while awake and every 2 hours when necessary. Present on Admission?: Yes (2) Suspected Lyme disease: IgM equivocal, and IgG negative, with Western blot confirmation pending Add anaplasmosis smear and DNA testing. Present on Admission?: Yes (3) Diabetes mellitus: Hold glipizide, Metformin and pioglitazone Place on Accu-Cheks before meals and at bedtime with NovoLog coverage per scale Check hemoglobin A1c Present on Admission?: Yes (4) Hypercholesterolemia: Continue simvastatin, presently on 80 mg daily Present on Admission?: Yes (5) Hypertension: Hold HCTZ. 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 Can follow-up in the outpatient setting Present on Admission?: Yes History of Present Illness Chief Complaint: The patient presents to the emergency department with 5 days of generalized weakness, fever, chills, and today became somewhat confused, disoriented and off balance. Primary Care Provider: Darin Whitfield MD The patient is a 79-year-old male with a past medical history including pyuria, actinic keratoses, diverticulosis, diabetes mellitus, hypertension, hyperlipidemia, internal hemorrhoids, macular degeneration, actinic keratosis and seborrheic keratosis. The patient presents to the ED via EMS with symptoms as noted above. Of note, patient has been vaccinated against COVID-19, and his COVID-19 testing was negative in the ED. Additional significant laboratories include a Lyme IgM equivocal, and Lyme IgG negative, with Western blot sent for confirmation. Anaplasmosis testing ordered and pending. Patient was given cefepime 2 g IV by the ED. Imaging studies: Chest x-ray suggestive of bibasilar infiltrates, and a right upper lobe nodular density. CT chest without contrast: Dense right lower lobe consolidation consistent with pneumonia. Chronic interstitial lung disease. 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 Allergies Allergy/AdvReac Type Severity Reaction Status Date / Time No Known Allergies Allergy NONE Verified 09/13/20 20:12 Home Medications Medication Instructions Recorded Confirmed Type vitamins A,C,Z-[id number]-hyopvk 14,320 1 cap PO BID 11/10/18 09/13/20 History unit-226 mg-200 unit capsule pioglitazone 30 mg tablet 30 mg PO DAILY #90 tab 01/03/20 09/13/20 Rx lisinopril 40 mg tablet 40 mg PO DAILY #90 tab 05/13/20 09/13/20 Rx metformin 1,000 mg tablet 1,000 mg PO BID #180 tab 05/13/20 09/13/20 Rx verapamil 360 mg 24 hr 360 mg PO DAILY #90 cap 05/13/20 09/13/20 Rx capsule,extended release glipizide 5 mg tablet, extended 10 mg PO BID #360 tab 05/14/20 09/13/20 Rx release 24 hr clopidogrel 75 mg tablet 75 mg PO DAILY #90 tab 05/15/20 09/13/20 Rx hydrochlorothiazide 25 mg tablet 25 mg PO DAILY #90 tab 05/15/20 09/13/20 Rx simvastatin 80 mg PO HS 09/13/20 09/13/20 History Past Med/Surg History Medical History Actinic keratoses Diabetes mellitus Diverticulosis of colon Hypercholesterolemia Hypertension Internal hemorrhoids Limb pain Macular degeneration Seborrheic keratosis Social History Smoking Status: Former smoker Tobacco Type: Cigarettes Smoking End Date: 1964; Second Hand Exposure: No; Do You Dip or Chew Tobacco: No; Hx Alcohol Use: No Hx Substance Use: No Preferred Language: Kyrgyz Communication Ability: Effective Textile Finisher Required: No Beliefs That Will Affect Care: None Current Living Situation: Spouse Feels Safe at Home: Yes Safety Concerns: Feels Safe At This Time Assistive Devices: None Review of Systems Review of Systems: The patient denies chest pain, palpitations, shortness of breath, dyspnea on exertion, cough, lower extremity swelling, sore throat, nausea, vomiting, diarrhea , constipation, abdominal pain, pelvic pain, blood in urine or stool, dysuria, urinary frequency or urgency, memory loss, loss of consciousness, rash, abnormal bruising or bleeding, focal or weakness, numbness or tingling in arms or legs, generalized arthralgias or myalgias, back or neck pain, or night sweats. The review of systems is otherwise negative other than for that already noted above, and at least 10 systems have been reviewed. Physical Exam Physical Exam: The patient is awake, alert and oriented 3, well developed and well nourished, normocephalic and atraumatic, lying in bed and in no acute distress. HEENT--PERRL, EOMI, mucous membranes and oropharynx dry. Neck--supple. No JVD. No bruits. Thyroid normal, trachea midline, no adenopathy. Heart--normal S1 and S2. No murmurs, rubs or gallops. Lungs--few coarse breath sounds at the bases bilaterally. No respiratory distress, no accessory muscle use. Abdomen--normal bowel sounds and soft. Nontender. Nondistended. Extremities--no cyanosis or clubbing. No edema. Dermatologic--normal skin turgor, normal color, no abnormal lymph nodes, no rash. Neurologic--cranial nerves II through XII grossly intact. Rheumatologic--normal range of motion. Psychiatric--normal affect. Results & Data Results & Data ([facility]) Vital Signs (Past 12 Hours) Vital Signs Temp Pulse Resp BP Pulse Ox 09/13/20 21:22 98.9 F 09/13/20 21:16 94 H 20 90 09/13/20 21:15 90 16 135/61 90 09/13/20 21:01 95 H 21 90 09/13/20 21:00 95 H 19 130/61 89 L 09/13/20 20:45 97 H 19 123/61 92 09/13/20 20:31 22 93 09/13/20 20:30 105 H 20 137/66 92 09/13/20 20:20 103 H 28 H 92 09/13/20 20:15 103 H 26 H 144/63 H 89 L 09/13/20 20:01 105 H 19 91 09/13/20 20:00 103 H 20 159/67 H 90 09/13/20 19:57 103 H 21 91 09/13/20 19:53 105 H 18 143/76 H 93 09/13/20 19:49 101.8 F H 120 H 28 H 143/76 H 91 Laboratory Results Laboratory Results WBC 9.73 K/uL (4.8-10.8) 09/13/20 20:06 RBC 3.63 M/uL (4.7-6.1) L 09/13/20 20:06 Hgb 11.6 g/dL (14.0-18.0) L 09/13/20 20:06 Hct 34.4 % (42-52) L 09/13/20 20:06 MCV 94.8 fL (80-100) 09/13/20 20:06 MCH 32.0 pg (25-34) 09/13/20 20:06 MCHC 33.7 g/dL (32-36) 09/13/20 20:06 RDW Std Deviation 46.5 fL (36.4-46.3) H 09/13/20 20:06 RDW Coeff of Tristin 13.3 % (11.5-14.5) 09/13/20 20:06 Plt Count 191 K/uL (130-400) 09/13/20 20:06 MPV 11.5 fL (7.4-10.4) H 09/13/20 20:06 Immature Gran % (Auto) 0.4 % 09/13/20 20:06 Neut % (Auto) 88.7 % 09/13/20 20:06 Lymph % (Auto) 5.2 % 09/13/20 20:06 [place] % (Auto) 5.7 % 09/13/20 20:06 Eos % (Auto) 0.0 % 09/13/20 20:06 Baso % (Auto) 0.0 % 09/13/20 20:06 Neut # (Auto) 8.63 K/uL (1.4-6.5) H 09/13/20 20:06 Lymph # (Auto) 0.51 K/uL (1.2-3.4) L 09/13/20 20:06 [place] # (Auto) 0.55 K/uL (0.11-0.59) 09/13/20 20:06 Eos # (Auto) 0.00 K/uL (0-0.5) 09/13/20 20:06 Baso # (Auto) 0.00 K/uL (0-0.2) 09/13/20 20:06 Immature Gran # (Auto) 0.04 K/uL (0.00-0.02) H 09/13/20 20:06 PT 10.2 Seconds (9.0-12.0) 09/13/20 20:06 INR 1.0 (0.9-1.1) 09/13/20 20:06 APTT 25.6 Seconds (21.0-31.0) 09/13/20 20:06 PTT Ratio 1.0 09/13/20 20:06 Sodium 129 mmol/L (136-145) L 09/13/20 20:06 Potassium 3.5 mmol/L (3.5-5.1) 09/13/20 20:06 Chloride 93 mmol/L (98-107) L 09/13/20 20:06 Carbon Dioxide 28 mmol/L (21-32) 09/13/20 20:06 Anion Gap 8.0 (3-11) 09/13/20 20:06 BUN 39 mg/dl (7-18) H 09/13/20 20:06 Creatinine 1.48 mg/dl (0.6-1.4) H 09/13/20 20:06 Est Cr Clr Drug Dosing 39.2 ml/min 09/13/20 20:06 Est GFR ( Amer) 51.4 ml/min 09/13/20 20:06 Est GFR (Non-Af Amer) 44.4 ml/min 09/13/20 20:06 BUN/Creatinine Ratio 26.4 (10-20) H 09/13/20 20:06 Glucose 255 mg/dl (70-99) H 09/13/20 20:06 POC Glucose 225 mg/dl (70-99) H 09/14/20 00:10 Lactate 2.4 mmol/L (0.4-2.0) H* 09/13/20 21:56 Calcium 9.8 mg/dl (8.5-10.1) 09/13/20 20:06 Magnesium 1.8 mg/dl (1.8-2.4) 09/13/20 20:06 Total Bilirubin 0.6 mg/dl (0.2-1) 09/13/20 20:06 AST 41 U/L (15-37) H 09/13/20 20:06 ALT 45 U/L (12-78) 09/13/20 20:06 Alkaline Phosphatase 65 U/L (45-117) 09/13/20 20:06 Total Protein 7.5 gm/dl (6.4-8.2) 09/13/20 20:06 Albumin 3.1 gm/dl (3.4-5.0) L 09/13/20 20: Globulin 4.4 gm/dl (2.5-4.0) H 09/13/20 20:06 Albumin/Globulin Ratio 0.7 (0.9-2) L 09/13/20 20:06 Procalcitonin 0.39 ng/ml (0-0.5) 09/13/20 20:06 Urine Color Yellow 09/13/20 20: Urine Appearance Clear (Clear) 09/13/20 20: Urine pH 5.0 (4.5-7.5) 09/13/20 20:31 Ur Specific [place] 1.022 (1.000-1.030) 09/13/20 20: Urine Protein 2+ (Negative) H 09/13/20 20:31 Urine Glucose (UA) 2+ (Negative) H 09/13/20 20:31 Urine Ketones 1+ (Negative) H 09/13/20 20: Urine Blood 2+ (Negative) H 09/13/20 20:31 Urine Nitrite Negative (Negative) 09/13/20 20:31 Urine Bilirubin Negative (Negative) 09/13/20 20:31 Urine Urobilinogen Negative (Negative) 09/13/20 20: Ur Leukocyte Esterase Negative (Negative) 09/13/20 20:31 Urine WBC (Auto) 5-10 /hpf (0-5) H 09/13/20 20:31 Urine RBC (Auto) 10-30 /hpf (0-4) H 09/13/20 20: U Hyaline Cast (Auto) 1-5 /lpf (0-5) 09/13/20 20: U Epithel Cells (Auto) 20-30 /lpf (0-5) H 09/13/20 20:31 Urine Bacteria (Auto) Negative (Negative) 09/13/20 20:31 Lyme Disease IgG Ab Negative (Negative) 09/13/20 20: Lyme Disease IgM Ab Equivocal (Negative) A 09/13/20 20:06 COVID-19 Eval Order Covid19 at [facility] 09/13/20 20:12 SARS-CoV-2 (PCR) NEGATIVE (Negative) 09/13/20 20:12 Impressions Chest X-Ray 09/13/20 19:58 SINGLE VIEW CHEST CLINICAL HISTORY: Sepsis. FINDINGS: An AP, portable, upright chest radiograph is compared to study dated 12/12/2008. The heart is top normal for projection noting atherosclerotic calcification of the thoracic aorta. The pulmonary vasculature is noncongested. There is elevation of right hemidiaphragm. Bibasilar airspace opacities are noted. Apical scarring is observed. Question a nodular density in the right upper lobe. No large pleural effusion on pneumothorax is seen. The skeletal structures are osteopenic. The bony thorax is grossly intact. IMPRESSION: 1. There are bibasilar airspace opacities. This could represent atelectasis versus a mild infectious/inflammatory pneumonitis and clinical correlation will be required. 2. Question a nodular density in the right upper lobe. Correlation with a chest CT is recommended for further assessment and to exclude underlying pulmonary lesion. ACT 112: Negative or not required by law. Electronically signed by: Luis A Allred M.D. 09/13/2020 8:[address] 09/13/20 22:54 CT SCAN OF THE CHEST WITHOUT IV CONTRAST CLINICAL HISTORY: Fever. Chills. Abnormal chest x-ray. COMPARISON STUDY: Chest x-ray dated 09/13/2020. TECHNIQUE: CT scan of the thorax was performed from the thoracic inlet to the upper abdomen. Images are reviewed in the axial, sagittal, and coronal planes. IV contrast was not administered for this examination as per the referring clinician. A dose lowering technique was utilized adhering to the principles of ALARA. CT DOSE: 240.65 mGy.cm FINDINGS: Thyroid: Imaged portions of the thyroid gland are normal in size and attenuation. Thoracic aorta: There is mild atherosclerotic calcification of the thoracic aorta, which is normal in caliber and demonstrates standard 3-vessel arch anatomy. Heart: The heart is enlarged and without pericardial effusion. The coronary arteries are densely calcified. The main pulmonary arteries are dilated suggesting pulmonary artery hypertension. Lungs and pleural spaces: Evaluation of the lung parenchyma is degraded by motion artifact. The trachea and central airways are clear. There is dense airspace consolidation throughout the right lower lung consistent with pneumonia. No pleural effusion is identified. Scattered calcified granulomas are observed. Subpleural reticulation is seen throughout both lungs. Mild bronchiectasis is suggested in the upper lobes. No honeycombing is seen. There is nodular biapical pleural parenchymal scarring. This likely corresponds to abnormality suggested by chest x-ray. Mediastinum: Prominent mediastinal lymph nodes are likely reactive and measure up to 9 mm in short axis. A subcarinal node measures 12 mm in short axis. There calcification containing mediastinal nodes. Isabela: There are calcified hilar nodes. Note that the isabela are not well assessed without IV contrast. Axillae: There is no axillary lymphadenopathy. Upper abdomen: There is a 6 mm nonobstructing calculus in the upper pole of the right kidney. A small hiatal hernia is noted. There is a 1.9 cm cystic lesion in the pancreatic neck seen on image #298. There is nodular thickening of the left adrenal gland. Skeletal structures: The skeletal structures are osteopenic. Degenerative change and mild kyphoscoliosis is noted in the thoracic spine. No lytic or blastic bony lesions are seen. IMPRESSION: 1. There is dense right lower lobe consolidation consistent with pneumonia/aspiration pneumonitis. Radiographic follow-up to resolution is recommended. Follow-up should include both PA and lateral views. 2. Cardiomegaly. 3. There is nodular biapical pleural parenchymal scarring. This likely corresponds to the abnormality suggested by chest x-ray. 4. There is evidence of chronic interstitial lung disease. Consider nonemergent pulmonology follow-up. 5. Right-sided nephrolithiasis. 6. 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 Nonemergent/outpatient GI follow-up is recommended. 7. Additional findings as above. ACT 112: Positive. There are findings on this exam that require communication between the performing entity and the patient following Patient Test Result Information Act ([place] Act 112) guidelines. Electronically signed by: Luis A Allred M.D. 09/13/2020 11:34 PM Code Status & VTE Plan Code Status Full code VTE Prophylaxis Plan VTE Prophylaxis will be ordered: Yes PG Care Time/CCT Total # of Minutes Spent Total Time Spent with Patient: Total time spent is greater than 50% in coordination of care (as documented) at patient's floor/unit and/or counseling patient: Coding Level of Care Code 66459 Initial Inpt Care Lvl 3 Diagnoses Pneumonia J18.9 Laterality: right Lung location: lower lobe of lung Pneumonia type: due to unspecified organism Suspected Lyme disease R68.89 Diabetes mellitus E11.9 Hypercholesterolemia E78.00 Hypertension I10 Pancreatic cyst K86.2 Chronic interstitial lung disease J84.9 (1) Pneumonia Laterality: right Lung location: lower lobe of lung Pneumonia type: due to unspecified organism Qualified Code(s): J18.9 - Pneumonia, unspecified organism
--- NOTE | 2020-09-13 23:36 | CT Scan Report ---
CT SCAN OF THE CHEST WITHOUT IV CONTRAST CLINICAL HISTORY: Fever. Chills. Abnormal chest x-ray. COMPARISON STUDY: Chest x-ray dated 09/13/2020. TECHNIQUE: CT scan of the thorax was performed from the thoracic inlet to the upper abdomen. Images are reviewed in the axial, sagittal, and coronal planes. IV contrast was not administered for this ex amination as per the referring clinician. A dose lowering technique was utilized adhering to the flakito Rea. CT DOSE: 240.65 mGy.cm FINDINGS: Thyroid: Imaged portions of the thyroid gland are normal in size and attenuation. Thoracic aorta: There is mild atherosclerotic calcification of the thoracic aorta, which is normal in caliber and demonstrates standard 3-vessel arch anatomy. Heart: The heart is enlarged and without pericardial effusion. The coronary arteries are densely calc ified. The main pulmonary arteries are dilated suggesting pulmonary artery hypertension. Lungs and pleural spaces: Evaluation of the lung parenchyma is degraded by motion artifact. The trach ea and central airways are clear. There is dense airspace consolidation throughout the right lower carlos eduardo ng consistent with pneumonia. No pleural effusion is identified. Scattered calcified granulomas are o bserved. Subpleural reticulation is seen throughout both lungs. Mild bronchiectasis is suggested in t he upper lobes. No honeycombing is seen. There is nodular biapical pleural parenchymal scarring. This likely corresponds to abnormality suggested by chest x-ray. Mediastinum: Prominent mediastinal lymph nodes are likely reactive and measure up to 9 mm in short ax is. A subcarinal node measures 12 mm in short axis. There calcification containing mediastinal nodes. Isabela: There are calcified hilar nodes. Note that the isabela are not well assessed without IV contrast. Axillae: There is no axillary lymphadenopathy. Upper abdomen: There is a 6 mm nonobstructing calculus in the upper pole of the right kidney. A small hiatal hernia is noted. There is a 1.9 cm cystic lesion in the pancreatic neck seen on image #298. T here is nodular thickening of the left adrenal gland. Skeletal structures: The skeletal structures are osteopenic. Degenerative change and mild kyphoscolio sis is noted in the thoracic spine. No lytic or blastic bony lesions are seen. IMPRESSION: 1. There is dense right lower lobe consolidation consistent with pneumonia/aspiration pneumonitis. Ra diographic follow-up to resolution is recommended. Follow-up should include both PA and lateral views . 2. Cardiomegaly. 3. There is nodular biapical pleural parenchymal scarring. This likely corresponds to the abnormality suggested by chest x-ray. 4. There is evidence of chronic interstitial lung disease. Consider nonemergent pulmonology follow-up . 5. Right-sided nephrolithiasis. 6. There is a 1.9 cm cystic lesion in the pancreatic neck, likely representing a mucinous cystic neop lasm or large side branch IPMN. Nonemergent/outpatient GI follow-up is recommended. 7. Additional findings as above. ACT 112: Positive. There are findings on this exam that require communication between the performing entity and the patient following Patient Test Result Information Act [place] Act 112) guidelines. Electronically signed by: Luis A Allred M.D. 09/13/2020 11:34 PM
[2020-09-14] MEDS ORDERED: CARBOHYDRATES FOR HYPOGLYCEMIA PO PRN (00:29)
[2020-09-14] MEDS ORDERED: ONDANSETRON INJ 2 MG/ML 2 ML VIAL IV PRN (00:29)
[2020-09-14] MEDS ORDERED: GLUCAGON FOR INJ 1 MG VIAL SQ PRN (00:29)
[2020-09-14] MEDS ORDERED: DEXTROSE 50% 50 ML SYRINGE IV PRN (00:29)
[2020-09-14] MEDS ORDERED: GLUCOSE 40% GEL 15 GM TUBE PO PRN (00:29)
[2020-09-14] MEDS ORDERED: GLUCOSE 10 TABS/TUBE PO PRN (00:29)
[2020-09-14] MEDS: ACETAMINOPHEN 325 MG TAB PO PRN ×4 (01:55→23:08)
[2020-09-14] MEDS: cefTRIAXone SODIUM 2,000 MG in DEXTROSE 5% 50 ML IV SCH (01:56)
[2020-09-14] MEDS: DOXYCYCLINE HYCLATE 100 MG in DEXTROSE 5% 100 ML IV SCH ×2 (01:58→12:34)
[2020-09-14] MEDS: INSULIN ASPART 100 UNITS/ML 3 ML PEN SC SCH ×5 (02:07→21:38)
[2020-09-14 05:05] LABS: Basophils # (auto) 0.01 K/uL (0-0.2); Basophils % (auto) 0.1 %; Hematocrit (blood only) 31.9 % (42-52); Hemoglobin 10.7 g/dL (14.0-18.0); Immature Granulocytes # (auto) 0.03 K/uL (0.00-0.02); Immature Granulocytes % (auto) 0.3 %; Lymphocytes # (auto) 0.37 K/uL (1.2-3.4); Lymphocytes % (auto) 3.8 %; Mean Corpuscular Hemoglobin 31.7 pg (25-34); Mean Corpuscular Hgb Conc 33.5 g/dL (32-36); Mean Corpuscular Volume 94.4 fL (80-100); Mean Platelet Volume 11.1 fL (7.4-10.4); Monocytes # (auto) 0.41 K/uL (0.11-0.59); Monocytes % (auto) 4.2 %; Neutrophils # (auto) 8.94 K/uL (1.4-6.5); Neutrophils % (auto) 91.6 %; Platelet Count 182 K/uL (130-400); RDW Coefficient of Variation 13.5 % (11.5-14.5); RDW Standard Deviation 46.6 fL (36.4-46.3); Red Blood Count 3.38 M/uL (4.7-6.1); White Blood Count 9.76 K/uL (4.8-10.8)
[2020-09-14 05:25] LABS: Albumin Level 2.6 gm/dl (3.4-5.0); BUN Creatinine Ratio 24.6 (10-20); Calcium 8.9 mg/dl (8.5-10.1); Creatinine Clr Calc Pharmacy 46.4 ml/min; Est GFR (African American) 63.1 ml/min; Est GFR (Non-African American) 54.4 ml/min
[2020-09-14 05:28] LABS: Albumin Globulin Ratio 0.7 (0.9-2); Bilirubin,Total 0.6 mg/dl (0.2-1); Total Protein 6.6 gm/dl (6.4-8.2)
[2020-09-14 05:37] LABS: RBC Morphology Unremarkable
[2020-09-14 05:59] LABS: Estimated Average Glucose 186 mg/dl; Hemoglobin A1C 8.1 % (4.5-5.6)
[2020-09-14] MEDS: CEROVITE ADV FORMULA TAB PO SCH (08:11)
[2020-09-14] MEDS: CLOPIDOGREL BISULFATE 75 MG TAB PO SCH (08:12)
[2020-09-14] MEDS: VERAPAMIL HCL 180 MG TABCR PO SCH (08:12)
[2020-09-14] MEDS: lisinopril 40 MG TAB PO SCH (08:12)
[2020-09-14] MEDS: ENOXAPARIN INJ 40 MG/0.4 ML SYR SQ SCH (08:13)
[2020-09-14] MEDS ORDERED: POTASSIUM CHLORIDE CRTAB 20 MEQ TABCR PO STA (08:37)
[2020-09-14] MEDS ORDERED: PIOGLITAZONE HCL 15 MG TAB PO SCH (09:00)
[2020-09-14] MEDS: INSULIN GLARGINE SOLOSTAR 100 UNITS/ML 3 ML PEN SC SCH ×2 (09:54→21:39)
[2020-09-14] MEDS: POTASSIUM CHLORIDE CRTAB 20 MEQ TABCR PO SCH ×2 (13:56→21:31)
[2020-09-14] MEDS ORDERED: haloperidoL 1 MG TAB PO PRN (16:20)
--- NOTE | 2020-09-14 16:22 | Hospitalist Progress Note ---
Date of Service September 14, 2020 Assessment & Plan (1) Sepsis: 2nd to pneumonia, RLL. cannot rule out tick-borne disease (see below). resume fluids - not eating/drinking. supportive care. broad-spectrum IV abx. follow blood cultures and tick studies. (2) Pneumonia: RLL. Either community-acquired vs aspiration ( reports dysphagia at home). Continue on ceftriaxone 2 g IV daily and doxycycline 100 mg IV every 12 hours -- latter to cover both pneumonia and possible Lyme disease/other tick-borne disease. Speech therapy consult due to ?dysphagia. If fever spikes continue would broaden rocephin to other agent in order to include better gram negative coverage (pseudomonas, etc). Also be on look-out for empyema or parapneumonic effusion development. Follow blood cultures. COVID negative, and has had COVID vaccine. (3) Metabolic encephalopathy: severe. 2nd to sepsis, pneumonia, ?lyme. supportive care. if severe sundowning tonight or agitation - haldol 1mg po hs prn. (4) Suspected Lyme disease: IgM equivocal, IgG negative -- western blot pending. Anaplasmosis smear negative; anaplasmosis DNA sent. While awaiting confirmatory studies -- doxy 100 BID. (5) Hyponatremia: appears volume contracted on exam. resume isotonic fluids. repeat BMP am. (6) Diabetes mellitus: uncontrolled, 2nd to sepsis/infection. Hold glipizide, Metformin and pioglitazone start lantus 15 units BID adjust novolog (7) Hypercholesterolemia: Continue simvastatin, presently on 80 mg daily LFTs wnl (8) Hypertension: Hold HCTZ. Continue lisinopril and verapamil as previous. BPs acceptable today. 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 will need surveillance of this lesion over time. (10) Chronic interstitial lung disease: refer to pulmonary post-d/c. certainly a risk factor for gram negative pathogens, etc (11) Hypokalemia: replace IV and PO repeat BMP am (12) Chronic kidney disease, stage 3a: baseline CrCl 30s/40s BMP am (13) DVT prophylaxis: lovenox 40mg daily extensively updated at bedside PT, OT evals requested Admission and Anticipated Discharge Date Admission Date: September 13, 2020 Subjective patient lying flat in bed comfortably during the visit. at bedside. he was VERY confused - couldn't tell me the year/date, where we were, what he did for a job over the years (worked at same place for 40 years per ), etc. offered no meaningful history or ros. reports a modest amount of cognitive/memory difficulty at home - perhaps for about 1 year - but very mild. performs all ADLs on own. works in yard and garden. tele overnight - NSR, sinus tach. his does report he chokes on pills at home, and often sneezes while eating meals. Review of Systems Review of Systems: Unobtainable due to cognitive status Physical Exam Constitutional: + ill appearing and + altered mental status; no acute distress ENMT: Mouth: + dry oral mucous membranes Respiratory: Auscultation: + diminished lung sounds (right base), + rales (right base) and + rhonchi (focal - right base) Cardiovascular: Rate/Rhythm: regular rate and regular rhythm Heart Sounds: normal S1 and normal S2 Vessels: posterior tibial pulses present and dorsalis pedis pulses present; no JVD Extremities: no edema Gastrointestinal (Abdomen): normal bowel sounds, soft, nontender, no hepatosplenomegaly Psychiatric: Orientation: alert and oriented to person; + not oriented to place and + not oriented to time Results & Data Results & Data ([facility]) Vital Signs (Past 12 Hours) Vital Signs Temp Pulse Pulse Resp BP BP Pulse Ox 09/14/20 15:50 39.4 C H 93 H 16 146/58 H 92 09/14/20 15:03 88 09/14/20 11:05 36.8 C 79 16 102/49 L 90 09/14/20 09:07 91 H 09/14/20 08:16 39.2 C H 97 H 16 153/68 H 91 Laboratory Results Laboratory Results - last 24 hr 09/14/20 09/14/20 09/14/20 00:10 04:39 04:39 WBC 9.76 RBC 3.38 L Hgb 10.7 L Hct 31.9 L MCV 94.4 MCH 31.7 MCHC 33.5 RDW Std Deviation 46.6 H RDW Coeff of Tristin 13.5 Plt Count 182 MPV 11.1 H Immature Gran % (Auto) 0.3 Neut % (Auto) 91.6 Lymph % (Auto) 3.8 [place] % (Auto) 4.2 Eos % (Auto) 0.0 Baso % (Auto) 0.1 Neut # (Auto) 8.94 H Lymph # (Auto) 0.[address] [place] # (Auto) 0.41 Eos # (Auto) 0.00 Baso # (Auto) 0.01 Immature Gran # (Auto) 0.03 H RBC Morphology Unremarkable Sodium 130 L Potassium 3.0 L Chloride 96 L Carbon Dioxide 28 Anion Gap 6.0 BUN 31 H Creatinine 1.25 Est Cr Clr Drug Dosing 46.4 Est GFR ( Amer) 63.1 Est GFR (Non-Af Amer) 54.4 BUN/Creatinine Ratio 24.6 H Glucose 222 H POC Glucose 225 H Estimat Average Glucose Hemoglobin A1c Calcium 8.9 Total Bilirubin 0.6 AST 30 ALT 36 Alkaline Phosphatase 53 Total Protein 6.6 Albumin 2.6 L Globulin 4.0 Albumin/Globulin Ratio 0.7 L Anaplasma Smear See Comment A. phagocytophilum DNA 09/14/20 09/14/20 09/14/20 04:39 04:39 07:35 WBC RBC Hgb Hct MCV MCH MCHC RDW Std Deviation RDW Coeff of Tristin Plt Count MPV Immature Gran % (Auto) Neut % (Auto) Lymph % (Auto) [place] % (Auto) Eos % (Auto) Baso % (Auto) Neut # (Auto) Lymph # (Auto) [place] # (Auto) Eos # (Auto) Baso # (Auto) Immature Gran # (Auto) RBC Morphology Sodium Potassium Chloride Carbon Dioxide Anion Gap BUN Creatinine Est Cr Clr Drug Dosing Est GFR ( Amer) Est GFR (Non-Af Amer) BUN/Creatinine Ratio Glucose POC Glucose 208 H Estimat Average Glucose 186 Hemoglobin A1c 8.1 H Calcium Total Bilirubin AST ALT Alkaline Phosphatase Total Protein Albumin Globulin Albumin/Globulin Ratio Anaplasma Smear A. phagocytophilum DNA Pending 09/14/20 09/14/20 09/14/20 11:26 16:34 21:32 WBC RBC Hgb Hct MCV MCH MCHC RDW Std Deviation RDW Coeff of Tristin Plt Count MPV Immature Gran % (Auto) Neut % (Auto) Lymph % (Auto) [place] % (Auto) Eos % (Auto) Baso % (Auto) Neut # (Auto) Lymph # (Auto) [place] # (Auto) Eos # (Auto) Baso # (Auto) Immature Gran # (Auto) RBC Morphology Sodium Potassium Chloride Carbon Dioxide Anion Gap BUN Creatinine Est Cr Clr Drug Dosing Est GFR ( Amer) Est GFR (Non-Af Amer) BUN/Creatinine Ratio Glucose POC Glucose 223 H 162 H 102 H Estimat Average Glucose Hemoglobin A1c Calcium Total Bilirubin AST ALT Alkaline Phosphatase Total Protein Albumin Globulin Albumin/Globulin Ratio Anaplasma Smear A. phagocytophilum DNA Diagnostic Findings Microbiology 09/13/20 20:06 Blood Aerobic Blood Culture - Preliminary No growth in Aerobic bottle after 24 hours. 09/13/20 20:06 Blood Anaerobic Blood Culture - Preliminary No growth in Anaerobic bottle after 24 hours. 09/13/20 20:06 Blood Aerobic Blood Culture - Preliminary No growth in Aerobic bottle after 24 hours. 09/13/20 20:06 Blood Anaerobic Blood Culture - Preliminary No growth in Anaerobic bottle after 24 hours. PG Care Time/CCT Total # of Minutes Spent Total Time Spent with Patient: Total time spent is greater than 50% in coordination of care (as documented) at patient's floor/unit and/or counseling patient: Coding Level of Care Code 27707 Subseq Hosp Care Lvl 3 Diagnoses Sepsis A41.9 Pneumonia J18.9 Laterality: right Lung location: lower lobe of lung Pneumonia type: due to unspecified organism Metabolic encephalopathy G93.41 Suspected Lyme disease R68.89 Hyponatremia E87.1 Diabetes mellitus E11.9 Hypercholesterolemia E78.00 Hypertension I10 Pancreatic cyst K86.2 Chronic interstitial lung disease J84.9 Hypokalemia E87.6 Chronic kidney disease, stage 3a N18.31 DVT prophylaxis Z29.9 (1) Pneumonia Laterality: right Lung location: lower lobe of lung Pneumonia type: due to unspecified organism Qualified Code(s): J18.9 - Pneumonia, unspecified organism
[2020-09-14] MEDS: NSS + 20MEQ KCL 20 MEQ/1,000 ML BAG IV SCH (18:43)
[2020-09-14] MEDS: SIMVASTATIN 80 MG TAB PO SCH (21:32)
[2020-09-14] MEDS: MELATONIN 3 MG TAB PO PRN (21:33)
[2020-09-15] MEDS: DOXYCYCLINE HYCLATE 100 MG in DEXTROSE 5% 100 ML IV SCH ×2 (01:19→12:26)
[2020-09-15] MEDS: cefTRIAXone SODIUM 2,000 MG in DEXTROSE 5% 50 ML IV SCH (03:33)
[2020-09-15] MEDS: NSS + 20MEQ KCL 20 MEQ/1,000 ML BAG IV SCH (03:34)
[2020-09-15 06:00] LABS: Hemoglobin 12.1 g/dL (14.0-18.0); Immature Granulocytes # (auto) 0.08 K/uL (0.00-0.02); Immature Granulocytes % (auto) 0.8 %; Lymphocytes % (auto) 6.6 %; Mean Corpuscular Hemoglobin 31.2 pg (25-34); Mean Corpuscular Hgb Conc 33.6 g/dL (32-36); Mean Corpuscular Volume 92.8 fL (80-100); Mean Platelet Volume 10.8 fL (7.4-10.4); Monocytes # (auto) 0.52 K/uL (0.11-0.59); Monocytes % (auto) 4.9 %; Neutrophils # (auto) 9.25 K/uL (1.4-6.5); Neutrophils % (auto) 87.7 %; Platelet Count 195 K/uL (130-400); RDW Coefficient of Variation 13.9 % (11.5-14.5); RDW Standard Deviation 47.5 fL (36.4-46.3); Red Blood Count 3.88 M/uL (4.7-6.1); White Blood Count 10.55 K/uL (4.8-10.8)
[2020-09-15 06:32] LABS: Albumin Globulin Ratio 0.5 (0.9-2); Albumin Level 2.4 gm/dl (3.4-5.0); BUN Creatinine Ratio 23.3 (10-20); Bilirubin,Total 0.4 mg/dl (0.2-1); Calcium 9.6 mg/dl (8.5-10.1); Creatinine Clr Calc Pharmacy 44.9 ml/min; Est GFR (African American) 60.7 ml/min; Est GFR (Non-African American) 52.4 ml/min; Globulin 4.5 gm/dl (2.5-4.0); Total Protein 6.9 gm/dl (6.4-8.2)
[2020-09-15] MEDS: CEROVITE ADV FORMULA TAB PO SCH (07:21)
[2020-09-15] MEDS: POTASSIUM CHLORIDE CRTAB 20 MEQ TABCR PO SCH (07:22)
[2020-09-15] MEDS: CLOPIDOGREL BISULFATE 75 MG TAB PO SCH (07:22)
[2020-09-15] MEDS: ENOXAPARIN INJ 40 MG/0.4 ML SYR SQ SCH (07:22)
[2020-09-15] MEDS: VERAPAMIL HCL 180 MG TABCR PO SCH (07:22)
[2020-09-15] MEDS: lisinopril 40 MG TAB PO SCH (07:23)
[2020-09-15] MEDS: INSULIN ASPART 100 UNITS/ML 3 ML PEN SC SCH ×4 (08:35→21:52)
[2020-09-15] MEDS: INSULIN GLARGINE SOLOSTAR 100 UNITS/ML 3 ML PEN SC SCH ×2 (08:37→21:52)
--- NOTE | 2020-09-15 11:30 | XRay Report ---
TWO VIEW CHEST CLINICAL HISTORY: Pneumonia. Fever. FINDINGS: PA and lateral chest radiographs are compared to chest x-ray and chest CT dated 09/13/2020. The heart is mildly enlarged noting atherosclerotic calcification of the thoracic aorta. The pulmonar y vasculature is noncongested. There is elevation right hemidiaphragm. Airspace consolidation is agai n seen throughout the right lower lung. No pleural effusion is identified. The left lung appears danielle r. Apical scarring is observed. There is no pneumothorax. The skeletal structures are osteopenic. The bony thorax appears intact. IMPRESSION: Airspace consolidation is again seen throughout the right lower lung, and appears modestl y increased as compared to 09/13/2020. ACT 112: Negative or not required by law. Electronically signed by: Luis A Allred M.D. 09/15/2020 11:28 AM
[2020-09-15] MEDS: ACETAMINOPHEN 325 MG TAB PO PRN (16:55)
--- NOTE | 2020-09-15 21:41 | Hospitalist Progress Note ---
Date of Service September 15, 2020 Assessment & Plan (1) Sepsis: 2nd to pneumonia, RLL. cannot rule out tick-borne disease. sepsis improved. blood cx's negative. but still w/ low-grade temps. will repeat a COVID-19 test just to be on safe side given cxr findings, ongoing fever, etc cont broad-spectrum IV abx. follow blood cultures and tick studies. (2) Pneumonia: RLL. Overall clinical improvement (eating, mentation, etc) but still w/ low-grade f ever. Either community-acquired vs aspiration ( reports dysphagia at home). speech saw patient in consult - video swallow planned for 09/16. Continue on ceftriaxone 2 g IV daily and doxycycline 100 mg IV every 12 hours -- latter to cover both pneumonia and possible Lyme disease/other tick-borne disease. Despite CXR findings today fortunately no signs of parapneumonic effusion. Repeat COVID testing today NEGATIVE. Blood cx's negative to date. (3) Metabolic encephalopathy: severe. 2nd to sepsis, pneumonia, ?lyme. improved. haldol 1mg po hs prn. did receive last pm and appears to have tolerated such. (4) Suspected Lyme disease: IgM equivocal, IgG negative -- western blot pending. Anaplasmosis smear negative; anaplasmosis DNA sent. mildly elevated AST would fit w/ anaplasmosis. While awaiting confirmatory studies -- doxy 100 BID. (5) Hyponatremia: improving with IVF. cont IV fluids until later today then d/c since eating/drinking is better. BMP in am. (6) Diabetes mellitus: improved. cont to hold glipizide, Metformin and pioglitazone cont lantus 15 units BID adjust novolog as needed (7) Hypercholesterolemia: Continue simvastatin, presently on 80 mg daily AST minimally elevated - ALT wnl recheck ast/alt in am (8) Hypertension: Hold HCTZ. Continue lisinopril and verapamil as previous. BPs remain acceptable. 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 will need surveillance of this lesion over time. (10) Chronic interstitial lung disease: refer to pulmonary post-d/c. 2-step at d/c as well. 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; could not recite this info yesterday) no cough no dyspnea still quite weak still with low-grade temps appetite mildly improved today tele wnl overnight Review of Systems Constitutional: + fever, + fatigue and + weakness; no body aches Respiratory: + cough; no dyspnea and no pain on inspiration Cardiovascular: no chest pain and no edema Gastrointestinal: no abdominal pain, no nausea and no vomiting Physical Exam Constitutional: no acute distress, not ill appearing and no altered mental status looks MUCH better today ENMT: Mouth: + dry oral mucous membranes Respiratory: no respiratory distress Auscultation: + diminished lung sounds (right base) and + rales (right base); no rhonchi and no wheezes Cardiovascular: Rate/Rhythm: regular rate and regular rhythm Heart Sounds: normal S1 and normal S2 Vessels: posterior tibial pulses present and dorsalis pedis pulses present; no JVD Extremities: no edema Gastrointestinal (Abdomen): normal bowel sounds, soft, nontender, no hepatosplenomegaly Psychiatric: Orientation: alert, oriented to person, oriented to place and oriented to time Results & Data Results & Data ([facility]) Vital Signs (Past 12 Hours) Vital Signs Temp Pulse Pulse Pulse Resp BP Pulse Ox 09/15/20 19:00 37.2 C 90 18 121/66 96 09/15/20 15:36 77 09/15/20 15:04 37.7 C H 78 16 128/57 L 90 09/15/20 11:48 37.5 C 83 16 129/64 96 09/15/20 10:35 37.6 C H Laboratory Results Laboratory Results - last 24 hr 09/15/20 09/15/20 09/15/20 05:41 05:41 07:39 WBC 10.55 RBC 3.88 L Hgb 12.1 L Hct 36.0 L MCV 92.8 MCH 31.2 MCHC 33.6 RDW Std Deviation 47.5 H RDW Coeff of Tristin 13.9 Plt Count 195 MPV 10.8 H Immature Gran % (Auto) 0.8 Neut % (Auto) 87.7 Lymph % (Auto) 6.6 [place] % (Auto) 4.9 Eos % (Auto) 0.0 Baso % (Auto) 0.0 Neut # (Auto) 9.25 H Lymph # (Auto) 0.70 L [place] # (Auto) 0.52 Eos # (Auto) 0.00 Baso # (Auto) 0.00 Immature Gran # (Auto) 0.08 H Sodium 133 L Potassium 4.0 D Chloride 99 Carbon Dioxide 28 Anion Gap 6.0 BUN 30 H Creatinine 1.29 Est Cr Clr Drug Dosing 44.9 Est GFR ( Amer) 60.7 Est GFR (Non-Af Amer) 52.4 BUN/Creatinine Ratio 23.3 H Glucose 142 H POC Glucose 135 H Calcium 9.6 Total Bilirubin 0.4 AST 61 H ALT 50 Alkaline Phosphatase 63 Total Protein 6.9 Albumin 2.4 L Globulin 4.5 H Albumin/Globulin Ratio 0.5 L COVID-19 Eval Order SARS-CoV-2 (PCR) 09/15/20 09/15/20 09/15/20 11:26 16:21 18:18 WBC RBC Hgb Hct MCV MCH MCHC RDW Std Deviation RDW Coeff of Tristin Plt Count MPV Immature Gran % (Auto) Neut % (Auto) Lymph % (Auto) [place] % (Auto) Eos % (Auto) Baso % (Auto) Neut # (Auto) Lymph # (Auto) [place] # (Auto) Eos # (Auto) Baso # (Auto) Immature Gran # (Auto) Sodium Potassium Chloride Carbon Dioxide Anion Gap BUN Creatinine Est Cr Clr Drug Dosing Est GFR ( Amer) Est GFR (Non-Af Amer) BUN/Creatinine Ratio Glucose POC Glucose 140 H 233 H Calcium Total Bilirubin AST ALT Alkaline Phosphatase Total Protein Albumin Globulin Albumin/Globulin Ratio COVID-19 Eval Order Covid19 at [facility] SARS-CoV-2 (PCR) 09/15/20 09/15/20 18:18 20:28 WBC RBC Hgb Hct MCV MCH MCHC RDW Std Deviation RDW Coeff of Tristin Plt Count MPV Immature Gran % (Auto) Neut % (Auto) Lymph % (Auto) [place] % (Auto) Eos % (Auto) Baso % (Auto) Neut # (Auto) Lymph # (Auto) [place] # (Auto) Eos # (Auto) Baso # (Auto) Immature Gran # (Auto) Sodium Potassium Chloride Carbon Dioxide Anion Gap BUN Creatinine Est Cr Clr Drug Dosing Est GFR ( Amer) Est GFR (Non-Af Amer) BUN/Creatinine Ratio Glucose POC Glucose 153 H Calcium Total Bilirubin AST ALT Alkaline Phosphatase Total Protein Albumin Globulin Albumin/Globulin Ratio COVID-19 Eval Order SARS-CoV-2 (PCR) NEGATIVE Diagnostic Findings Chest X-Ray 09/15/20 10:48 TWO VIEW CHEST CLINICAL HISTORY: Pneumonia. Fever. FINDINGS: PA and lateral chest radiographs are compared to chest x-ray and chest CT dated 09/13/2020. The heart is mildly enlarged noting atherosclerotic calcification of the thoracic aorta. The pulmonary vasculature is noncongested. There is elevation right hemidiaphragm. Airspace consolidation is again seen throughout the right lower lung. No pleural effusion is identified. The left lung appears clear. Apical scarring is observed. There is no pneumothorax. The skeletal structures are osteopenic. The bony thorax appears intact. IMPRESSION: Airspace consolidation is again seen throughout the right lower lung, and appears modestly increased as compared to 09/13/2020. ACT 112: Negative or not required by law. Electronically signed by: Luis A Allred M.D. 09/15/2020 11:28 AM PG Care Time/CCT Total # of Minutes Spent Total Time Spent with Patient: Total time spent is greater than 50% in coordination of care (as documented) at patient's floor/unit and/or counseling patient: Coding Level of Care Code 33351 Subseq Hosp Care Lvl 3 Diagnoses Sepsis A41.9 Pneumonia J18.9 Laterality: right Lung location: lower lobe of lung Pneumonia type: due to unspecified organism Metabolic encephalopathy G93.41 Suspected Lyme disease R68.89 Hyponatremia E87.1 Diabetes mellitus E11.9 Hypercholesterolemia E78.00 Hypertension I10 Pancreatic cyst K86.2 Chronic interstitial lung disease J84.9 Hypokalemia E87.6 Chronic kidney disease, stage 3a N18.31 DVT prophylaxis Z29.9 (1) Pneumonia Laterality: right Lung location: lower lobe of lung Pneumonia type: due to unspecified organism Qualified Code(s): J18.9 - Pneumonia, unspecified organism
[2020-09-15] MEDS: SIMVASTATIN 80 MG TAB PO SCH (21:53)
[2020-09-16] MEDS: DOXYCYCLINE HYCLATE 100 MG in DEXTROSE 5% 100 ML IV SCH ×2 (01:23→14:30)
[2020-09-16] MEDS: cefTRIAXone SODIUM 2,000 MG in DEXTROSE 5% 50 ML IV SCH (01:25)
[2020-09-16] MEDS: MELATONIN 3 MG TAB PO PRN (03:10)
[2020-09-16 06:25] LABS: Calcium 8.9 mg/dl (8.5-10.1); Creatinine Clr Calc Pharmacy 56.3 ml/min; Est GFR (African American) 79.7 ml/min; Est GFR (Non-African American) 68.8 ml/min; Potassium 3.4 mmol/L (3.5-5.1)
[2020-09-16] MEDS: ENOXAPARIN INJ 40 MG/0.4 ML SYR SQ SCH (07:43)
[2020-09-16] MEDS: CLOPIDOGREL BISULFATE 75 MG TAB PO SCH (07:43)
[2020-09-16] MEDS: CEROVITE ADV FORMULA TAB PO SCH (07:44)
[2020-09-16] MEDS: lisinopril 40 MG TAB PO SCH (07:44)
[2020-09-16] MEDS: VERAPAMIL HCL 180 MG TABCR PO SCH (07:44)
[2020-09-16] MEDS: INSULIN ASPART 100 UNITS/ML 3 ML PEN SC SCH ×4 (08:19→20:54)
[2020-09-16] MEDS: INSULIN GLARGINE SOLOSTAR 100 UNITS/ML 3 ML PEN SC SCH ×2 (08:20→20:54)
--- NOTE | 2020-09-16 12:32 | Electrocardiogram Report ---
Test Reason : Blood Pressure : / mmHG Vent. Rate : 103 BPM Atrial Rate : 103 BPM P-R Int : 154 ms QRS Dur : 128 ms QT Int : 346 ms P-R-T Axes : 044 008 008 degrees QTc Int : 453 ms Sinus tachycardia with Premature atrial complexes Right bundle branch block Abnormal ECG When compared with ECG of 13-DEC-2008 07:06, Premature atrial complexes are now Present Vent. rate has increased BY 34 BPM Right bundle branch block is now Present Confirmed by Wyatt Canales ([id number]) on 09/16/2020 12:32:21 PM Referred By: REFERRED SELF Confirmed By:Wyatt Canales
[2020-09-16] MEDS: POTASSIUM CHLORIDE CRTAB 20 MEQ TABCR PO SCH ×3 (12:47→20:55)
--- NOTE | 2020-09-16 14:45 | Fluoroscopy Report ---
MODIFIED BARIUM SWALLOW CLINICAL HISTORY: r/o aspiration COMPARISON STUDY: None. FLUOROSCOPY TIME: 1.9 minutes. TECHNIQUE: A modified barium swallow was performed in conjunction with Speech Pathology. The patient ingested varying consistencies of barium containing material. Video fluoroscopy was performed. FINDINGS: No aspiration was identified with thin liquids, nectar thick liquids, pudding or crackers w ith paste. Epiglottic inversion was normal. Laryngeal elevation was normal. Mild residuals were noted within the vallecula with several consistencies. IMPRESSION: 1. No tracheal aspiration identified. Intact swallowing mechanism. 2. Full recommendations by speech pathology to follow. ACT 112: Negative or not required by law. Electronically signed by: Fercho Ackerman M.D. 09/16/2020 2:44 PM
--- NOTE | 2020-09-16 22:53 | Hospitalist Progress Note ---
Date of Service September 16, 2020 Assessment & Plan (1) Sepsis: 2nd to RLL pneumonia and possible tick-borne disease. Sepsis resolved. COVID testing negative x 2. blood cx's negative. cont IV abx -- change to PO abx tomorrow. follow blood cultures and tick studies. (2) Pneumonia: RLL. RESOLVING. community-acquired. video swallow per speech therapy today - passed, no aspiration. Continue on ceftriaxone 2 g IV daily and doxycycline 100 mg IV every 12 hours -- latter to cover both pneumonia and possible Lyme disease/other tick-borne disease. Can likely change to omnicef/doxy in am. COVID-19 PCR neg x 2. Blood cx's negative to date. Given the consolidative nature of his RLL pneumonia on imaging and prior tobacco use history -- recommend repeat CT in 6-8 weeks to ensure resolution and to ensure no other intra-thoracic pathology. (3) Metabolic encephalopathy: severe. 2nd to sepsis, pneumonia, ?lyme. resolved. confirms MS is back to baseline. (4) Suspected Lyme disease: IgM equivocal, IgG negative -- western blot pending. Anaplasmosis smear negative; anaplasmosis DNA sent. elevated AST and ALT would fit w/ anaplasmosis. While awaiting confirmatory studies -- doxy 100 BID. (5) Hyponatremia: improved/resolved w/ IVF. BMP in am. (6) Diabetes mellitus: improved. cont to hold glipizide, Metformin and pioglitazone cont lantus 15 units BID adjust novolog today for tighter meal-time coverage. (7) Hypercholesterolemia: HOLD simvastatin due to transaminitis (8) Hypertension: Hold HCTZ. Continue lisinopril and verapamil as previous. BPs remain acceptable. 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 will need surveillance of this lesion over time. (10) Chronic interstitial lung disease: refer to pulmonary post-d/c. 2-step at d/c as well if o2 sats cont to remain low-normal. (11) Hypokalemia: replaced and nearly resolved (12) Chronic kidney disease, stage 3a: baseline CrCl 30s/40s BMP again stable today (13) Transaminitis: ast/alt cont to rise anaplasmosis? other? HOLD statin recheck ast/alt in am (14) DVT prophylaxis: lovenox 40mg daily extensively updated at bedside today hopefully home tomorrow Admission and Anticipated Discharge Date Admission Date: September 13, 2020 Subjective patient feeling very well mental status is back at baseline per who was at bedside today no cough no dyspnea no orthopnea appetite excellent tele wnl overnight Review of Systems Constitutional: no fever, no chills, no body aches, no fatigue and no anorexia Respiratory: no dyspnea on exertion and no pain on inspiration Cardiovascular: no chest pain Gastrointestinal: no abdominal pain, no nausea and no vomiting Physical Exam Constitutional: no acute distress, not ill appearing and no altered mental status ENMT: external ear and nose normal, oropharynx normal Respiratory: no respiratory distress Auscultation: + diminished lung sounds (right base) and + rales (right base); no rhonchi and no wheezes Cardiovascular: Rate/Rhythm: regular rate and regular rhythm Heart Sounds: normal S1 and normal S2 Vessels: posterior tibial pulses present and dorsalis pedis pulses present; no JVD Extremities: no edema Gastrointestinal (Abdomen): normal bowel sounds, soft, nontender, no hepatosplenomegaly Skin: no rashes, warm and dry Psychiatric: Orientation: alert, oriented to person, oriented to place and oriented to time Results & Data Results & Data ([facility]) Vital Signs (Past 12 Hours) Vital Signs Temp Pulse Pulse Resp BP Pulse Ox 09/16/20 19:24 37.3 C 76 18 146/76 H 95 09/16/20 15:28 37.2 C 80 19 152/72 H 94 09/16/20 15:00 75 09/16/20 10:56 36.8 C 72 18 122/64 90 Laboratory Results Laboratory Results - last 24 hr 09/16/20 09/16/20 09/16/20 05:25 07:23 11:07 Sodium 134 L Potassium 3.4 L Chloride 102 Carbon Dioxide 28 Anion Gap 4.0 BUN 25 H Creatinine 1.03 Est Cr Clr Drug Dosing 56.3 Est GFR ( Amer) 79.7 Est GFR (Non-Af Amer) 68.8 BUN/Creatinine Ratio 24.0 H Glucose 182 H POC Glucose 184 H 206 H Calcium 8.9 AST 170 H ALT 125 H 09/16/20 09/16/20 16:19 20:03 Sodium Potassium Chloride Carbon Dioxide Anion Gap BUN Creatinine Est Cr Clr Drug Dosing Est GFR ( Amer) Est GFR (Non-Af Amer) BUN/Creatinine Ratio Glucose POC Glucose 220 H 161 H Calcium AST ALT PG Care Time/CCT Total # of Minutes Spent Total Time Spent with Patient: Total time spent is greater than 50% in coordination of care (as documented) at patient's floor/unit and/or counseling patient: Coding Level of Care Code 79385 Subseq Hosp Care Lvl 2 Diagnoses Sepsis A41.9 Pneumonia J18.9 Laterality: right Lung location: lower lobe of lung Pneumonia type: due to unspecified organism Metabolic encephalopathy G93.41 Suspected Lyme disease R68.89 Hyponatremia E87.1 Diabetes mellitus E11.9 Hypercholesterolemia E78.00 Hypertension I10 Pancreatic cyst K86.2 Chronic interstitial lung disease J84.9 Hypokalemia E87.6 Chronic kidney disease, stage 3a N18.31 Transaminitis R74.01 DVT prophylaxis Z29.9 (1) Pneumonia Laterality: right Lung location: lower lobe of lung Pneumonia type: due to unspecified organism Qualified Code(s): J18.9 - Pneumonia, unspecified organism
[2020-09-17] MEDS: DOXYCYCLINE HYCLATE 100 MG in DEXTROSE 5% 100 ML IV SCH (00:04)
[2020-09-17] MEDS: cefTRIAXone SODIUM 2,000 MG in DEXTROSE 5% 50 ML IV SCH (02:23)
[2020-09-17 07:15] LABS: Basophils # (auto) 0.01 K/uL (0-0.2); Basophils % (auto) 0.2 %; Eosinophils # (auto) 0.18 K/uL (0-0.5); Eosinophils % (auto) 2.9 %; Hematocrit (blood only) 34.5 % (42-52); Hemoglobin 11.6 g/dL (14.0-18.0); Immature Granulocytes # (auto) 0.03 K/uL (0.00-0.02); Immature Granulocytes % (auto) 0.5 %; Lymphocytes % (auto) 15.9 %; Mean Corpuscular Hemoglobin 31.5 pg (25-34); Mean Corpuscular Hgb Conc 33.6 g/dL (32-36); Mean Corpuscular Volume 93.8 fL (80-100); Mean Platelet Volume 10.4 fL (7.4-10.4); Monocytes # (auto) 0.57 K/uL (0.11-0.59); Monocytes % (auto) 9.1 %; Neutrophils # (auto) 4.48 K/uL (1.4-6.5); Neutrophils % (auto) 71.4 %; Platelet Count 265 K/uL (130-400); RDW Standard Deviation 48.2 fL (36.4-46.3); Red Blood Count 3.68 M/uL (4.7-6.1); White Blood Count 6.27 K/uL (4.8-10.8)
[2020-09-17 07:45] LABS: Albumin Level 2.2 gm/dl (3.4-5.0); BUN Creatinine Ratio 20.9 (10-20); Calcium 9.1 mg/dl (8.5-10.1); Creatinine Clr Calc Pharmacy 65.1 ml/min; Est GFR (African American) 94.3 ml/min; Est GFR (Non-African American) 81.3 ml/min; Potassium 3.7 mmol/L (3.5-5.1)
[2020-09-17 07:48] LABS: Albumin Globulin Ratio 0.5 (0.9-2); Bilirubin,Total 0.4 mg/dl (0.2-1); Globulin 4.3 gm/dl (2.5-4.0); Total Protein 6.5 gm/dl (6.4-8.2)
[2020-09-17 08:36] LABS: 18KDIGG Band NON-REACTIVE; 23KDIGG Band NON-REACTIVE; 23KDIGM Band REACTIVE; 28KDIGG Band NON-REACTIVE; 30KDIGG Band NON-REACTIVE; 39KDIGG Band NON-REACTIVE; 39KDIGM Band REACTIVE; 41KDIGG Band NON-REACTIVE; 41KDIGM Band NON-REACTIVE; 45KDIGG Band NON-REACTIVE; 58KDIGG Band NON-REACTIVE; 66KDIGG Band NON-REACTIVE; 93KDIGG Band NON-REACTIVE; Lyme Antibodies, WB IgG NEGATIVE (NEGATIVE); Lyme Antibodies, WB IgM POSITIVE (NEGATIVE)
[2020-09-17] MEDS: INSULIN ASPART 100 UNITS/ML 3 ML PEN SC SCH ×3 (08:52→16:57)
[2020-09-17] MEDS: ENOXAPARIN INJ 40 MG/0.4 ML SYR SQ SCH (08:54)
[2020-09-17] MEDS: INSULIN GLARGINE SOLOSTAR 100 UNITS/ML 3 ML PEN SC SCH (08:54)
[2020-09-17] MEDS: POTASSIUM CHLORIDE CRTAB 20 MEQ TABCR PO SCH ×2 (08:54→13:05)
[2020-09-17] MEDS: CEROVITE ADV FORMULA TAB PO SCH (08:54)
[2020-09-17] MEDS: CLOPIDOGREL BISULFATE 75 MG TAB PO SCH (08:54)
[2020-09-17] MEDS: lisinopril 40 MG TAB PO SCH (08:54)
[2020-09-17] MEDS ORDERED: DOXYCYCLINE HYCLATE 100 MG CAP PO SCH (09:00)
[2020-09-17] MEDS: VERAPAMIL HCL 180 MG TABCR PO SCH (09:30)
--- NOTE | 2020-09-17 14:44 | Ultrasound Report ---
US gallbladder CLINICAL HISTORY: acute transaminitis COMPARISON STUDY: No previous studies for comparison. FINDINGS: There is no biliary ductal dilatation. No hepatic lesions are identified. Hepatic echogenic ity is at the upper limits of normal. The common bile duct measures 6 mm in caliber. The gallbladder is normal. There are no gallstones. Pancreatic body is normal. Head and tail are obscured. There is n o right hydronephrosis. IMPRESSION: No gallstones or biliary ductal dilatation. ACT 112: Negative or not required by law. Electronically signed by: Fercho Ackerman M.D. 09/17/2020 2:43 PM
[2020-09-17] MEDS ORDERED: CEFDINIR 300 MG CAP PO SCH (21:00)
--- NOTE | 2020-09-18 23:37 | Billing Data ---
Date of Service September 17, 2020 Coding Level of Care Code D/C Day Management >30 mins
--- NOTE | 2020-09-18 23:37 | Discharge Summary ---
Date of Service date of admission - September 13, 2020 date of discharge - September 17, 2020 Admission HPI Per Admitting Provider The patient is a 79-year-old male with a past medical history including pyuria, actinic keratoses, diverticulosis, diabetes mellitus, hypertension, hyperlipidemia, internal hemorrhoids, macular degeneration, actinic keratosis and seborrheic keratosis. The patient presents to the ED via EMS with symptoms as noted above. Of note, patient has been vaccinated against COVID-19, and his COVID-19 testing was negative in the ED. Additional significant laboratories include a Lyme IgM equivocal, and Lyme IgG negative, with Western blot sent for confirmation. Anaplasmosis testing ordered and pending. Patient was given cefepime 2 g IV by the ED. Imaging studies: Chest x-ray suggestive of bibasilar infiltrates, and a right upper lobe nodular density. CT chest without contrast: Dense right lower lobe consolidation consistent with pneumonia. Chronic interstitial lung disease. 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 Principal Diagnosis 1. Sepsis 2nd to #2, #3 2. RLL community-acquired pneumonia 3. Early Stage Lyme Disease 4. Metabolic encephalopathy 5. Abnormal LFTs Discharge Exam Constitutional no acute distress, not ill appearing and no altered mental status ENMT external ear and nose normal, oropharynx normal Respiratory no respiratory distress Auscultation: + diminished lung sounds (right base) and + rales (right base); no rhonchi and no wheezes Cardiovascular Rate/Rhythm: regular rate and regular rhythm Heart Sounds: normal S1 and normal S2 Vessels: posterior tibial pulses present and dorsalis pedis pulses present; no JVD Extremities: no edema Gastrointestinal (Abdomen) normal bowel sounds, soft, nontender, no hepatosplenomegaly Musculoskeletal Extremities: + clubbing (mild ) Skin no rashes, warm and dry Psychiatric Orientation: alert, oriented to person, oriented to place and oriented to time Discharge Data Allergies Allergy/AdvReac Type Severity Reaction Status Date / Time No Known Allergies Allergy NONE Verified 09/13/20 20:12 Consultations Speech therapy PT, OT Ordered Studies Chest X-Ray 09/13/20 19:58 SINGLE VIEW CHEST CLINICAL HISTORY: Sepsis. FINDINGS: An AP, portable, upright chest radiograph is compared to study dated 12/12/2008. The heart is top normal for projection noting atherosclerotic calcification of the thoracic aorta. The pulmonary vasculature is noncongested. There is elevation of right hemidiaphragm. Bibasilar airspace opacities are noted. Apical scarring is observed. Question a nodular density in the right upper lobe. No large pleural effusion on pneumothorax is seen. The skeletal st ructures are osteopenic. The bony thorax is grossly intact. IMPRESSION: 1. There are bibasilar airspace opacities. This could represent atelectasis versus a mild infectious/inflammatory pneumonitis and clinical correlation will be required. 2. Question a nodular density in the right upper lobe. Correlation with a chest CT is recommended for further assessment and to exclude underlying pulmonary lesion. ACT 112: Negative or not required by law. Electronically signed by: Luis A Allred M.D. 09/13/2020 8:[address] 09/13/20 22:54 CT SCAN OF THE CHEST WITHOUT IV CONTRAST CLINICAL HISTORY: Fever. Chills. Abnormal chest x-ray. COMPARISON STUDY: Chest x-ray dated 09/13/2020. TECHNIQUE: CT scan of the thorax was performed from the thoracic inlet to the upper abdomen. Images are reviewed in the axial, sagittal, and coronal planes. IV contrast was not administered for this examination as per the referring clinician. A dose lowering technique was utilized adhering to the principles of ALARA. CT DOSE: 240.65 mGy.cm FINDINGS: Thyroid: Imaged portions of the thyroid gland are normal in size and attenuation. Thoracic aorta: There is mild atherosclerotic calcification of the thoracic aorta, which is normal in caliber and demonstrates standard 3-vessel arch anatomy. Heart: The heart is enlarged and without pericardial effusion. The coronary arteries are densely calcified. The main pulmonary arteries are dilated suggesting pulmonary artery hypertension. Lungs and pleural spaces: Evaluation of the lung parenchyma is degraded by motion artifact. The trachea and central airways are clear. There is dense airspace consolidation throughout the right lower lung consistent with pneumonia. No pleural effusion is identified. Scattered calcified granulomas are observed. Subpleural reticulation is seen throughout both lungs. Mild bronchiectasis is suggested in the upper lobes. No honeycombing is seen. There is nodular biapical pleural parenchymal scarring. This likely corresponds to abnormality suggested by chest x-ray. Mediastinum: Prominent mediastinal lymph nodes are likely reactive and measure up to 9 mm in short axis. A subcarinal node measures 12 mm in short axis. There calcification containing mediastinal nodes. Isabela: There are calcified hilar nodes. Note that the isabela are not well assessed without IV contrast. Axillae: There is no axillary lymphadenopathy. Upper abdomen: There is a 6 mm nonobstructing calculus in the upper pole of the right kidney. A small hiatal hernia is noted. There is a 1.9 cm cystic lesion in the pancreatic neck seen on image #298. There is nodular thickening of the left adrenal gland. Skeletal structures: The skeletal structures are osteopenic. Degenerative change and mild kyphoscoliosis is noted in the thoracic spine. No lytic or blastic bony lesions are seen. IMPRESSION: 1. There is dense right lower lobe consolidation consistent with pneumonia/aspiration pneumonitis. Radiographic follow-up to resolution is recommended. Follow-up should include both PA and lateral views. 2. Cardiomegaly. 3. There is nodular biapical pleural parenchymal scarring. This likely corresponds to the abnormality suggested by chest x-ray. 4. There is evidence of chronic interstitial lung disease. Consider nonemergent pulmonology follow-up. 5. Right-sided nephrolithiasis. 6. 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 Nonemergent/outpatient GI follow-up is recommended. 7. Additional findings as above. ACT 112: Positive. There are findings on this exam that require communication between the performing entity and the patient following Patient Test Result Information Act ([place] Act 112) guidelines. Electronically signed by: Luis A Allred M.D. 09/13/2020 11:34 PM Chest X-Ray 09/15/20 10:48 TWO VIEW CHEST CLINICAL HISTORY: Pneumonia. Fever. FINDINGS: PA and lateral chest radiographs are compared to chest x-ray and chest CT dated 09/13/2020. The heart is mildly enlarged noting atherosclerotic calcification of the thoracic aorta. The pulmonary vasculature is noncongested. There is elevation right hemidiaphragm. Airspace consolidation is again seen throughout the right lower lung. No pleural effusion is identified. The left carlos eduardo ng appears clear. Apical scarring is observed. There is no pneumothorax. The skeletal structures are osteopenic. The bony thorax appears intact. IMPRESSION: Airspace consolidation is again seen throughout the right lower lung, and appears modestly increased as compared to 09/13/2020. ACT 112: Negative or not required by law. Electronically signed by: Luis A Allred M.D. 09/15/2020 11:28 AM Videofluoroscopic Swallow 09/16/20 13:45 MODIFIED BARIUM SWALLOW CLINICAL HISTORY: r/o aspiration COMPARISON STUDY: None. FLUOROSCOPY TIME: 1.9 minutes. TECHNIQUE: A modified barium swallow was performed in conjunction with Speech Pathology. The patient ingested varying consistencies of barium containing material. Video fluoroscopy was performed. FINDINGS: No aspiration was identified with thin liquids, nectar thick liquids, pudding or crackers with paste. Epiglottic inversion was normal. Laryngeal elevation was normal. Mild residuals were noted within the vallecula with several consistencies. IMPRESSION: 1. No tracheal aspiration identified. Intact swallowing mechanism. 2. Full recommendations by speech pathology to follow. ACT 112: Negative or not required by law. Electronically signed by: Fercho Ackerman M.D. 09/16/2020 2:44 PM Gallbladder Ultrasound 09/17/20 09:41 US gallbladder CLINICAL HISTORY: acute transaminitis COMPARISON STUDY: No previous studies for comparison. FINDINGS: There is no biliary ductal dilatation. No hepatic lesions are identified. Hepatic echogenicity is at the upper limits of normal. The common bile duct measures 6 mm in caliber. The gallbladder is normal. There are no gallstones. Pancreatic body is normal. Head and tail are obscured. There is no right hydronephrosis. IMPRESSION: No gallstones or biliary ductal dilatation. ACT 112: Negative or not required by law. Electronically signed by: Fercho Ackerman M.D. 09/17/2020 2:43 PM Hospital Course (1) Sepsis: 2nd to RLL pneumonia and Lyme disease. Sepsis resolved. COVID testing negative x 2. Blood cx's negative. (2) Pneumonia: RLL, dense consolidation as seen on CT chest. Community-acquired. Video swallow test as performed by speech therapy did not show any aspiration. Received IV ceftriaxone/doxycycline during the stay and was transitioned to oral omnicef for 3 days along with doxycycline (latter for both pneumonia & Lyme) at discharge. COVID-19 PCR neg x 2. Blood cx's negative to date. Given the consolidative nature of his RLL pneumonia on imaging and prior tobacco use history I recommended repeat CT chest in 6-8 weeks to ensure resolution and to ensure no other intra-thoracic pathology (ie cancer). Unfortunately the patient does need ambulatory NC O2. Two-step oxygen test showed that he needs 3 L NC O2 with activity/ambulation only. None is needed at rest. The possible interstitial lung disease may be contributing heavily to the ambulatory hypoxia. (3) Lyme disease: Patient's IgM screen was positive; IgG was negative. Western Blot returned just prior to discharge confirming the diagnosis of early stage Lyme. He received IV doxycycline while hospitalized, and will complete 10 more days of such at home. Counseled about importance of tick checks after working outside. Anaplasmosis DNA was dispatched & pending at time of discharge. Anaplasmosis smear was negative. (4) Metabolic encephalopathy: Severe at time of presentation. 2nd to sepsis, pneumonia, lyme disease. Resolved with treatment of the above infections, supportive care, and time. Patient was back to mental status baseline several days prior to discharge. (5) Hyponatremia: Lowest Na level = 129. Discharge Na level = 134. This was 2nd to hypovolemic hyponatremia. (6) Diabetes mellitus: HbA1c 8.1% this admission. Glipizide, Metformin and pioglitazone were held while here but resumed upon discharge. (7) Hypercholesterolemia: HOLD simvastatin due to transaminitis at time of discharge. (8) Hypertension: HCTZ was held the entire stay due to low-normal BPs. He was continued on his lisinopril and verapamil as previous. At discharge he was asked to continue OFF the HCTZ. 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 Will need additional work-up of this lesion soon after discharge. Patient and his were informed of this CT finding. (10) Chronic interstitial lung disease: As seen on CT chest. No prior formal diagnosis of such. 2-step O2 test demonstrated need for 3 liters NC O2 with ambulation. Recommend pulmonary consultation post-discharge for additional work-up. (11) Hypokalemia: Replaced and resolved prior to discharge. (12) Chronic kidney disease, stage 3a: Baseline CrCl 30s/40s. Baseline Cr 1 to 1.3. Discharge Cr 0.89. (13) Transaminitis: AST was mildly elevated at time of ER presentation. The AST toby during the stay to >200. ALT also toby into the 200s. Anaplasmosis? Drug side effect? other? RUQ u/s showed normal liver and gall bladder. At discharge the following were recommended - * HOLD statin * Recheck LFTs on September 19, 2020 as outpatient for stability * NO etoh * NO tylenol Total Time Total Time Spent Total Time Spent (In Minutes): 45 Total Time Includes: Examination of the Patient, Discharge Planning and Medication Reconciliation Discharge Plan Discharge Items Patient Disposition: Home - Self-Care Reason For Visit: Right-sided Pneumonia; Possible Lyme Disease Discharge Diagnosis: 1. Right lower lobe pneumonia - improved 2. Lyme disease - confirmed 3. Possible anaplasmosis (another tick borne disease) - final test is pending 4. Abnormal Liver Function Tests 5. Cyst on Pancreas 6. Question of Interstitial Lung Disease 7. Need for home oxygen - likely due to combination of #1 and #6 Condition on Discharge: Good Activity: As commented below Activity Comment: gradually increase your activities over the next 7 days Non-emergency contact: Primary Care Provider and Relish Maker Call non-emergency contact if: you have any medication questions, your symptoms worsen and you have a fever Follow-up/Referrals: [facility] [place] [facility] [Provider Group] (first available appointment. diagnoses - ?interstitial lung disease; RLL pneumonia. ) Darin Whitfield MD [Primary Care Provider] - 09/20/20 11:30 am (THIS APPOINTMENT WILL BE WITH CELIO GANNON.) Diet: Carb Consistent or DM2 and Heart Healthy Addtl Attending Provider Instructions: Mr Zhu, You were treated for the problems listed above in "discharge diagnoses." At time of admission you were quite ill with fevers, confusion, etc. We discovered that you had right lower lobe pneumonia. Your lyme screening test was also positive. You received IV antibiotics for the pneumonia as well as possible Lyme disease. All symptoms, fever, confusion, etc resolved with treatment of the above. Your Lyme confirmatory testing indeed returned positive. Unfortunately a walking oxygen test showed that you need oxygen with walking. You do not need to use oxygen at rest or with sleeping. Use the oxygen - 3 liters - any time you go outside, leave your home, walk around the house, etc. Hopefully this will be short-term but it is too early to know. We also found that your liver function tests were mildly elevated. They were elevated at time of admission, and toby during your stay. Tickborne diseases - particularly anaplasmosis - can cause this. Your cholesterol medication can also raise your liver tests. Recommendations - 1. cefdinir antibiotic - take 1 twice daily for 3 days, first dose TONIGHT. 2. doxycycline antibiotic - take 1 twice daily for 10 days, first dose TONIGHT. This antibiotic treats the pneumonia but it is mainly for your Lyme disease. * know that doxycycline can sometimes cause reflux and stomach upset * it can also cause a rash if you go out in the sun without sunscreen or covering up; thus, for the next 10 days, use caution if going outside to avoid this rash 3. STOP your simvastatin cholesterol medication for now due to the elevated liver tests. It can be resumed once your liver tests go back to normal. Know that your liver and gall bladder ultrasound was normal. 4. AVOID TYLENOL AND ALCOHOL until your liver tests return to normal. 5. STOP your hydrochlorothiazide blood pressure medication. Your blood pressures have been normal without it. 6. Be sure that anytime you spend time outdoors for long period of time, especially in your garden, etc - have your check your skin for tick bites. 7. Have a repeat blood test for your liver functions this , 09/19/20. We will call you with your results. 8. You will need a repeat chest x-ray or CAT scan of the lungs in 1-2 months to ensure the right-sided pneumonia has fully resolved. You will also need testing to determine if you have interstitial lung disease. Thus, we recommend that you consult with a [facility] Relish Maker to address these 2 things. 9. You have a small cyst on your pancreas. Your family doctor will need to monitor this over time. Follow-up - see separate section Return to [facility] if - * you develop recurrent fevers over 100 degrees * you have worsening shortness of breath * you develop severe diarrhea * any other concerns It was my pleasure caring for you! Feel better, Dr Dugan Pending Studies at Discharge: Yes Studies:: Anaplasmosis testing (a tickborne illness) Stand-Alone Forms: My [facility] [employer], Smoking Cessation Medications and DC Order Prescriptions: New (DME) Oxygen Home Liters Per Minute 3 ea .Route .with activity Qty: 1 RF: 0 doxycycline hyclate 100 mg Capsule 100 mg PO BID 10 Days Qty: 20 RF: 0 cefdinir 300 mg Capsule 300 mg PO BID 3 Days Qty: 6 RF: 0 Saccharomyces boulardii 250 mg capsule 250 mg PO DAILY 10 Days Qty: 10 RF: 0 Continued pioglitazone 30 mg tablet 30 mg PO DAILY Qty: 90 RF: 3 lisinopril 40 mg tablet 40 mg PO DAILY Qty: 90 RF: 3 metformin 1,000 mg tablet 1,000 mg PO BID Qty: 180 RF: 3 verapamil 360 mg capsule,ext rel. pellets 24 hr 360 mg PO DAILY Qty: 90 RF: 3 glipizide 5 mg tablet extended release 24hr 10 mg PO BID Qty: 360 RF: 3 clopidogrel 75 mg tablet 75 mg PO DAILY Qty: 90 RF: 3 PreserVision AREDS [id number] [id number]-cp-[id number] capsule 1 cap PO BID RF: 0 Discontinued hydrochlorothiazide 25 mg tablet 25 mg PO DAILY Qty: 90 RF: 3 simvastatin 80 mg tablet 80 mg PO HS RF: 0 Discharge Orders: Discharge Order (Routine); Ordered 09/17/20 Ordered By: Darin Mendoza/Other Patient Handouts: Preventing Lyme Disease, Managing Type 2 Diabetes, Tick Bites, ED Lyme Disease, A1C Admission Data Admit Date/Time: 09/13/20 22:52 Attending Provider: Darin Dugan Admit Provider: Greg Jones Primary Care Provider: Darin Whitfield Other Providers: Greg Jones Other Interventions: Discharge Summary Assessment (RN) Last Done: 09/17/20 15:39 Coding Level of Care Code None Diagnoses Sepsis A41.9 Pneumonia J18.9 Laterality: right Lung location: lower lobe of lung Pneumonia type: due to unspecified organism Lyme disease A69.20 Metabolic encephalopathy G93.41 Hyponatremia E87.1 Diabetes mellitus E11.9 Hypercholesterolemia E78.00 Hypertension I10 Pancreatic cyst K86.2 Chronic interstitial lung disease J84.9 Hypokalemia E87.6 Chronic kidney disease, stage 3a N18.31 Transaminitis R74.01
--- NOTE | 2020-09-26 08:55 | Coding Query ---
CODING QUERY To promote full compliance with coding requirements relating to patient care, provider participation is requested in all cases of airport driver uncertainty. Please assist us with the question(s) below: Coding Question(s): Per discharge diagnosis, patient with "Possible Anaplasmosis-final test is pending." Anaplasmosis smear was negative and this only appears on discharge. Please clarify below: ( ) Possible Anaplasmosis (x ) Anaplasmosis Ruled Out -- test returned NEGATIVE. ( ) Other Please Explain: Physician's Response(s): Thank you German Ruiz Principal Diagnosis: "that condition established after study, to be chiefly responsible for occasioning the admission of the patient to the hospital for care." Co-Existing Principal Diagnosis: "when two or more diagnoses equally meet the criteria for principal diagnosis as determined by the circumstances of admission, diagnostic work up, and/or therapy provided, and the Alphabetic Index, Tabular List, or another coding guideline does not provide sequencing direction, any one of the diagnoses may be sequenced first." "When the physician has documented what appears to be a current diagnosis in the body of the record, but has not included the diagnosis in the final diagnostic statement, the physician should be asked whether the diagnosis should be added." (Source Coding Clinic 2 QTR90. p3-4) MARCELA
== END 2020-09-17 18:28 | disposition home or self-care (01) | DRG 871 ==
LOC: ED 19:44 → 2N 22:52 → SUATTDRO 22:52 → 2N 23:29
DX: Z87.891 Personal history of nicotine dependence; I12.9 Hypertensive chronic kidney disease with stage 1 through stage 4 chronic kidney disease, or unspecified chronic kidney disease; Z79.02 Long term (current) use of antithrombotics/antiplatelets; Z79.899 Other long term (current) drug therapy; E87.6 Hypokalemia; K86.2 Cyst of pancreas; E11.22 Type 2 diabetes mellitus with diabetic chronic kidney disease; H35.30 Unspecified macular degeneration; E78.5 Hyperlipidemia, unspecified; E87.1 Hypo-osmolality and hyponatremia; R74.01 Elevation of levels of liver transaminase levels; J84.9 Interstitial pulmonary disease, unspecified; A41.9 Sepsis, unspecified organism; E78.00 Pure hypercholesterolemia, unspecified; J18.9 Pneumonia, unspecified organism; Z79.84 Long term (current) use of oral hypoglycemic drugs; G93.41 Metabolic encephalopathy; A69.20 Lyme disease, unspecified; R13.10 Dysphagia, unspecified; N18.31 Chronic kidney disease, stage 3a; D13.6 Benign neoplasm of pancreas